=== PATIENT | female | born 1975 ===

== ENCOUNTER 2024-12-17 08:30 | Outpatient (AMB) | payer OTHER, SELFPAY ==
--- NOTE | 2024-12-17 08:33 | A.OFFPC_ITS ---
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: No Is last menstrual period known: Yes Last menstrual period: 11/28/24 Post menopausal: No Patient : No Allergies No Known Allergies Allergy (Verified 12/17/24 08:51) Medication List - Last Reconciled 12/17/24 by Ken Ridley CNP No Known Home Meds Tobacco use date assessed: 12/17/24 Dental Screening Dental Screen Date: 12/17/24 Did you have a dental visit in the last 12 months?: No Did you have a dental problem in the last 6 months where you did not have access to dental care?: No Was dental information given to patient?: Yes HPI HPI Comments History of Present Illness Details 49-year-old female presents to establish care. Prior PCP? - [facility] Last office visit/CPE/labs - 2-3 years ago Acute issue(s) - Reports right sprain ankle. Slipped of f on the running board of her [employer] tundra, twisted, fell, and landed on her right ankle, on 12/11/2024. She is able to bear weight with ortho boot. She was given crutches for ambulation. She currently has ortho boot on. She reports pain if she bears weight with the boot off. She alternates between tylenol and ibuprofen as needed. She was evaluated at [facility] on 12/11/2024. - History of anxiety and depression. She notes that her depression is generally well controlled. She is anxious and worry all the times and does not know the cause. Reports history of fluoxetine and lorazepam. She has not been on medications for the past 4 years because she did not have health insurance. She denies history of out-patient therapist or psychiatrist. Past Medical History - Eczema, TMJ, hidradenitis, anxiety, de pression Surgical History - Gastric sleeve (4-5 years ago), C-sect ion, adenoidectomy, tonsillectomy, tubal ligation, cholecystectomy, appendectomy, bilateral breast reduction surgery Family History - Mom: Diabetes - MGM: Cardiovascular disease, diabetes , hypertension, hyperlipidemia Social History - Nonsmoker. Does not vape. Drinks wine on occasions. Denies recreational drug use - Has been making healthy dietary choice s; gradual increase in weight since gastric sleeve surgery. Walk regularly. Difficulty maintaining sleep; sleeps an average of 5 hours nightly, initial sleep study in 2019 revealed sleep apnea, repeat sleep study 1-2 years later was normal Health maintenance - Last eye exam was in 2019. Referred to Ophthalmology for routine eye exam - Last dental visit was 3 years ago; enc ouraged to schedule an appointment with his dentist for routine dental care - Last tetanus vaccine was more than 10 years ago; received Tdap vaccine today - Has not been vaccinated for the flu ; declines vaccination - Last pap smear test was in 10/09/2024: n egative (reviewed on pt's portal on her phone) - Last mammogram was with [facility] in 11/19/2024: negative (reviewed on pt's portal on her phone) [facility] Medical History (Updated 12/17/24 @ 14:38 by Ken Ridley CNP) Hydradenitis TMJ (dislocation of temporomandibular joint) Foot injury Eczema Depression Anxiety Surgical History (Updated 12/17/24 @ 09:00 by Becca Kahn MA) H/O gastric sleeve H/O: History of adenoidectomy History of tonsillectomy H/O tubal ligation History of cholecystectomy Hx of appendectomy History of bilateral breast reduction surgery Family History (Updated 12/17/24 @ 09:02 by Becca Kahn MA) Maternal Grandmother High blood pressure High cholesterol Diabetes Cardiovascular disease Mother Diabetes Maternal Aunt Lung cancer Social History (Updated 12/17/24 @ 08:40 by Becca Kahn MA) Housing: House Patient Tobacco Use Status: Never used Tobacco e-Cigarette/Vaping Use: Never Used Second Hand Smoke Exposure: No service: No Current occupational status: unemployed Current occupational exposures/hazards: No Cognitive needs: No Hearing needs: No Vision needs: No Female Reproductive History Menstrual Date of last menstrual period: 11/28/24 Questionnaire PHQ-9 Over the last 2 weeks, how often have you been bothered by any of the following problems? 1. Little interest or pleasure in doing things: not at all 2. Feeling down, depressed, or hopeless: not at all 3. Trouble falling or staying asleep, or sleeping too much: not at all 4. Feeling tired or having little energy: not at all 5. Poor appetite or overeating: not at all 6. Feeling bad about yourself - or that you are a failure or have let yourself or your family down: not at all 7. Trouble concentrating on things, such as reading the newspaper or watching television: not at all 8. Moving or speaking so slowly that other people could have noticed. Or the opposite - being so fidgety or restless that you have been moving around a lot more than usual: not at all 9. Thoughts that you would be better off or of hurting yourself in some way: not at all Total score: 0 Depression Screening Interpretation: Negative Depression Screening Done: Yes 70996 - PHQ-9 Billing: Yes Source: Developed by Drs. Stef Garduno, Ivett Domingo, Johnny Healy and colleagues, with an educational teresita from [employer] Thrive Questionnaire Date Thrive assessed: 12/17/24 I am a: Patient What is your living situation today?: I choose not to answer this question Within the past 12 months, did the food you bought not last and you didn't have the money to get more?: I choose not to answer this question Within the past 12 months, did you worry whether your food would run out before you got money to buy more?: I choose not to answer this question Do you have trouble paying for medicines?: I choose not to answer this question Do you have trouble getting transportation to medical appointments?: I choose not to answer this question Do you have trouble paying your heating and electricity bill?: I choose not to answer this question Do you have trouble taking care of your child, family member or friend?: I choose not to answer this question Do you have trouble with day-to-day activities such as bathing, preparing meals, shopping, managing finances, etc.?: I choose not to answer this question Are you currently unemployed and looking for a job?: I choose not to answer this question Are you interested in more education?: I choose not to answer this question Please select the resources that you would like help with: None Currently or been in a relationship where the following occur: I choose not to answer THRIVE Score: 0 AUDIT C Alcohol Use Questionnaire (AUDIT-C) 1. How often do you have a drink containing alcohol?: Never 3. How often do you have six or more drinks on one occasion?: Never Total Score: 0 Score Reviewed/Action Taken: Yes JG-7 AMB Questionnaire JG-7 Date JG - 7 assessed: 12/17/24 Feeling nervous, anxious, or on edge: 2 = More than half the days Not being able to stop or control worryin = More than half the days Worrying too much about different things: 2 = More than half the days Trouble relaxin = More than half the days Being so restless that it is hard to sit still: 2 = More than half the days Becoming easily annoyed or irritable: 2 = More than half the days Feeling afraid as if something awful might happen: 0 = Not at all Total JG-7 score (0-4 normal; 5-9 mild; 10-14 moderate; 15-21 severe): 12 Source: Developed by Drs. Stef Garduno, Ivett Domingo, Johnny Healy and colleagues, with an educational teresita from [employer] JG-7 Assessment Billing JG-7 Assessment Tool: JG-7 Assessment 50992 Review of Systems Const Details: Denies chills, Denies fatigue, Denies fever(s), Denies headache(s) and Denies weakness HEENT Denies change in vision, Denies dizziness, Denies headache(s), Denies hearing loss, Denies nasal congestion, Denies sinus pain, Denies sinus pressure and Denies sore throat Card Denies chest pain, Denies lightheadedness, Denies dyspnea and Denies other (palpitations) Resp Denies cough, Denies dyspnea and Denies wheezing GI Denies abdominal pain, Denies melena, Denies hematochezia, Denies change in bowel habits, Denies dyspepsia and Denies nausea Denies hematuria and Denies dysuria Musc Reports right ankle sprain, Reports abnormal gait, Denies numbness and Denies tingling Skin/Breast Denies rash, Denies unusual bruising and Denies wounds Neuro Denies dizziness, Denies headache(s), Denies memory loss, Denies numbness, Denies Sensory deficit (Neuro), Denies tingling and Denies weakness Psych Reports anxiety, Denies depression and Denies memory loss Endo Denies cold intolerance, Denies fatigue, Denies heat intolerance, Denies polydipsia and Denies polyuria Mir/Lymph Denies easy bleeding and Denies easy bruising Aller/Immun Denies wheezing Physical exam (Primary Care) Vital Signs: Last Vital Signs Temp 98.2 F 12/17/24 08:40 Pulse 83 12/17/24 08:40 Resp 16 12/17/24 08:40 BP 132/81 12/17/24 08:40 Pulse Ox 100 12/17/24 08:40 Oxygen Delivery Method Room Air 12/17/24 08:40 BMI result Body Mass Index 39.8 Tobacco/Smoking Status: Tobacco use Status Tobacco use date assessed 12/17/24 12/17/24 08:40 Patient Tobacco Use Status Never used Tobacco 12/17/24 08:40 e-Cigarette/Vaping Use Never Used 12/17/24 08:40 PHQ-9: PHQ-9 Score PHQ-9: Total score 0 12/17/24 09:54 Depression Screening Interpretation: Negative Thrive Assessment: Date of Thrive Assessment Date Thrive assessed 12/17/24 12/17/24 08:40 Currently or been in a relationship where the following occur: I choose not to answer Const Other: General: no acute distress, well developed, alert and awake Nutritional Appearance: well nourished Orientation/consciousness: patient oriented x3 HENMT Head: Yes normocephalic and Yes atraumatic Ears: hearing grossly normal bilaterally and TM's normal bilaterally General nose exam: Normal external nose present and Normal nares present Mouth: Normal oral and palatal mucosa present and moist mucous membranes Teeth and gingiva: dentition normal Throat: Yes oropharynx normal Eyes Pupils: Equal, round and reactive pupils present and Pupil accommodation reflex normal EOM: EOMs intact bilaterally Neck Neck: Yes normal visual inspection, Yes no lymphadenopathy and Yes trachea midline Thyroid: Thyroid normal Carotids: no bruits Lymphatic: no lymphadenopathy noted Chest Chest palpation & inspection: normal inspection of the chest Resp Effort & Inspection: normal respiratory effort Auscultation: clear to auscultation bilaterally Cardio Rate: regular rate Rhythm: regular rhythm Heart sounds: S1 normal heart sound present, S2 normal heart sound present, no gallops, no murmurs and no rubs Bruits: no abdominal aortic bruits and no carotid bruits GI Palpation (GI): No Abdominal aortic bruit present, Soft to palpation, nontender, No hepatosplenomegaly present and No Rebound tenderness present Auscultation: normal bowel sounds General: Yes no CVA tenderness Back/Spine/Pelvis Back: no CVA tenderness Cervical Spine: cervical ROM normal and No Cervical spine tenderness Thoracic/Lumbar Spine: thoraco-lumbar ROM normal, No pain with thoraco-lumbar ROM, No thoracic spinal tenderness and No lumbar spinal tenderness Skin General: warm and dry. Normal skin color. Normal skin turgor Lesions: no lesions Rashes: no rashes Trauma: no lacerations or abrasions Wounds: no wounds Nails: normal Neuro General: patient oriented x3, gait unsteady and CN's II-XI intact bilaterally Cranial nerves: Yes Equal, round and reactive pupils present Cognition (Neuro): normal cognition Gait exam (Neuro): Unsteady gait present favoring right lower extremity Motor exam (neuro): 5/5 motor strength present throughout Sensory Exam: No Sensory deficit (Neuro) Deep tendon reflexes (DTR's): Right patellar reflex intensity grade: 2+ and Left patellar reflex intensity grade: 2+ Extrem General: Yes normal to inspection, No calf tenderness, tenderness to palpation of the right ankle, moderate edema noted, normal CMS Psych Appearance: grossly normal Affect: normal affect Attitude: cooperative Thought process: Normal thought process present Immunizations Boostrix Tdap 2.5 Lf unit-8 mcg-5 Lf/0.5 mL intramuscular syringe Performing Provider: Ken Ridley CNP Performing Location: [facility] Administered by: Nereida White RN on 12/17/24 09:52 Dose Route Admin Location Dispensed Lot Number Expiration Date NDC Level Vial Setter 0.5 mL IM Right Deltoid 0.5 mL [id number] 03/01/27 11552-970-41 [employer] VIS Given Date VIS Provided VIS Publication Date 12/17/24 Single Vaccine 21 Eligibility Eligibility Date Funding Source Not [facility] Eligible 12/17/24 Private Coding Level of Care Code New Pt Level 4 (72017) Complex EM visit Add On G2211 Diagnoses Right ankle sprain S93.401A Anxiety F41.9 Depression F32.A Eye exam, routine Z01.00 Obesity (BMI 30-39.9) E66.9 Sleep disturbance G47.9 Laboratory tests ordered as part of a complete physical exam (CPE) Z00.00 Additional Codes JG-7 Assessment Billing - JG-7 Assessment Tool: JG-7 Assessment 32821 ([id number]) PHQ-9 - 36652 - PHQ-9 Billing: Yes ([id number]) Assessment & Plan Assessment & Plan (1) Right ankle sprain: Code(s): S93.401A - Sprain of unspecified ligament of right ankle, initial encounter Category: Medical Plan: Reports right sprain ankle. Slipped off on the running board of her [employer] tundra, twisted, fell, and landed on her right ankle, on 12/11/2024. She is able to bear weight with ortho boot. She was given crutches for ambulation. She currently has ortho boot on. She reports pain if she bears weight with the boot off. She alternates between tylenol and ibuprofen as needed. She was evaluated at [facility] on 12/11/2024. Tenderness to palpation of the right ankle, moderate edema noted, normal CMS. Unsteady gait favoring the right lower extremity. Continue current treatment regimen. Elevate right lower extremity to improve edema. Follow-up for an extended physical exams and lab review in 1 month. Return sooner with symptoms or concerns. Verbalized understanding and agreed with treatment plan. (2) Anxiety: Code(s): F41.9 - Anxiety disorder, unspecified Category: Medical Plan: History of anxiety and depression. She notes that her depression is generally well controlled. She is anxious and worry all the times and does not know the cause. Reports history of fluoxetine and lorazepam. She has not been on medications for the past 4 years because she did not have health insurance. She denies history of out-patient therapist or psychiatrist. JG-7 score revealed moderate anxiety. PHQ-9 score is normal. Declines psychotropic medications or psychotherapy referral at this time. Routine exercise encouraged. Follow-up as needed. Verbalized understanding and agreed with the plan. (3) Depression: Code(s): F32.A - Depression, unspecified Category: Medical Plan: Plan as above. (4) Eye exam, routine: Code(s): Z01.00 - Encounter for examination of eyes and vision without abnormal findings Category: Medical Plan: Last eye exam was in 2020. Referred to Ophthalmology for routine eye exam. (5) Obesity (BMI 30-39.9): Code(s): E66.9 - Obesity, unspecified Category: Medical Plan: She generally makes healthy lifestyle choices. Her weight has gradually increased since she had gastric sleeve surgery 4-5 years ago. 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 Healthy diet and routine exercise encouraged. Follow-up as needed. Verbalized understanding and agreed with the plan. (6) Sleep disturbance: Code(s): G47.9 - Sleep disorder, unspecified Category: Medical Plan: Repports difficulty maintaining sleep. She sleeps an average of 5 hours nightly. Initial sleep study in 2019 revealed sleep apnea, repeat sleep study 1-2 years later was normal. She is not on CPAP. Instructed on sleep hygiene. Referred to [facility] for sleep study. Follow-up with worsening or new symptoms. Verbalized understanding and agreed with the plan. (7) Laboratory tests ordered as part of a complete physical exam (CPE): Code(s): Z00.00 - Encounter for general adult medical examination without abnormal findings Plan: Fasting labs ordered as part of a complete physical exam. Advised to fast for at least 10 hours before getting labs drawn. May drink water Verbalized understanding and agreed with treatment plan. Orders: Orders Complete Blood Count Auto Diff Today Z00.00 - Encounter for general adult medical examination without abnormal findings Comprehensive [place]. Panel Fast Today Z00.00 - Encounter for general adult medical examination without abnormal findings Lipid Panel Today Z00.00 - Encounter for general adult medical examination without abnormal findings TSH reflex Free T4 Today Z00.00 - Encounter for general adult medical examination without abnormal findings UA CC w/rflx Micro + Cult Today Z00.00 - Encounter for general adult medical examination without abnormal findings TDaP Immunization Today Z23 - Encounter for immunization Microalbumin, Random (w Creat) Today Z00.00 - Encounter for general adult medical examination without abnormal findings Vitamin D 25-OH Total Today Z00.00 - Encounter for general adult medical examination without abnormal findings Referrals Sleep Medicine Referral G47.9 - Sleep disorder, unspecified Ophthalmology Referral Z01.00 - Encounter for examination of eyes and vision without abnormal findings
[2024-12-17 08:40] VITALS: BP 132/81; PULSE 83; RESP 16; TEMP 36.8; O2SAT 100; BMI 39.8
--- OUTSIDE RECORDS SUMMARY | 2024-12-17 08:56 | XMS_ITS | Encounter Summary ---
Author Organization [facility] Address [address] [place] [address] Care Team Providers Care Mill Tender Second Operator Name Role Phone Stef Garcia DO Primary Care Provider + Reason for Referral * Consultation (Routine) - Authorized Specialty Diagnoses / Procedures Referred By Shiva brock Referred To Contact Orthopaedic Surgery Diagnoses ankle sprain Lila Corbett PA [address] [place] [address] Phone: tel: fax: Orthopedic Surgery [facility] [address] [address] Phone: tel: fax: Referral ID Status Reason Start Date Expiration Date Visits Requested Visits Authorized [id number] Authorized Specialty Services Required 12/11/2024 12/11/2025 1 1 Reason for Visit * Reason Comments Ankle Pain Pt fell from truck a nd landed on right ankle, here with c/o right ankle pain. Denies hitting her head. Encounter Details Date Type Department Care Team (Late st Contact Info) Description 12/11/2024 6:15 PM EDT - 12/11/2024 8:[address] [facility] Emergency [address] [place] [address] Sprain of right ankle, unspecified ligament, initial encounter (Primary Dx); Closed avulsion fracture of metatarsal bone of right foot, initial encounter Discharge Disposition: Home or Self Care Social History Tobacco Use Types Packs/Day Years Used Date Smoking Tobacco: Never Smokeless Tobacco: Never Alcohol Use Standard Drinks/Week Comments No 0 (1 standard drink = 0.6 oz pur e alcohol) Comments No Sex and Gender Information Value Date Recorded Sex Assigned at Not on file Legal Sex Female 11:45 PM EST Gender Identity Not on file Sexual Orientation Not on file documented as of this encounter Last Filed Vital Signs Vital Sign Reading Time Taken Comments Blood Pressure 134/92 12/11/2024 8:37 PM EDT Pulse 72 12/11/2024 8:37 PM EDT Temperature 37.1 ??C (98.8 ??F) 12/11/2024 8:37 PM ED T Respiratory Rate 16 12/11/2024 8:37 PM EDT Oxygen Saturation 100% 12/11/2024 8:37 PM EDT Inhaled Oxygen Concentration - - Weight 97.5 kg (215 lb) 12/11/2024 5:39 PM EDT Height 160 cm (5' 3 ) 12/11/2024 5:39 PM EDT Body Mass Index 38.09 12/11/2024 5:39 PM EDT documented in this encounter Discharge Instructions * Discharge Instructions* NATALY Valdivia - 12/11/2024 8:16 PM EDT You are seen in the ER today for right ankle and foot pain after an injury. We did do an x-ray which does show a likely small bone chip on the right side of your foot near your ankle. I likely believe you may have also sprained your ankle , meaning you stretched or injured the ligaments or tendons in your ankle. This caused some swelling and discomfort. I highly recommend elevating the foot, applying ice for 20 minutes 3-4 times a day, keeping it wrapped with an Sebastien wrap, and you may use crutches as needed. Weight-bear as tolerated. Try to practice gentle stretches and exercises such as thealphabet exercises we discussed. I also recommend taking Tylenol and ibuprofen for pain and swelling. Please return to the ER immediately if you experience any changes of color, temperature, sensation,new weakness, sudden increase in pain, or any other concerning findings. It was a pleasure caring for you today in the emergency department. Please return to the emergency department if you begin to experience any new onset chest pain, shortness of breath, uncontrolled fevers, severe abdominal pain, loss of consciousness, uncontrolled vomiting, uncontrolled diarrhea, or for any other reason you feel is necessary. Please follow-up with your PCP about this visit. Examination and treatment you received in the emergency department has been rendered on an EMERGENCY basis only. It is not intended to be a substitute for or an effort to provide complete medical care. You should follow-up with your primary care provider. Please report to your physician any new or remaining problems, because it is impossible to recognize and treat all elements of injury or illness in a single emergency department visit. If you do not have a primary care provider or require a referral, a follow-up doctor section gang for the emergency department will be provided in your discharge packet. In the event that you're unable to obtain a followup appointment in a timely fashion, OR you are not getting any better, OR you are getting worse, OR you develop any symptoms of concern, please return here immediately for further evaluation. The emergency department is open 24 hours a day, 7 days aweek. Your discharge report is based on information that was available when you were in the emergency department If you do not have a primary care provider, please contact one of the following to make arrangements to follow up. [facility] Marlee Ramírez Marlee Conchita * Attachments The following attachments cannot be sent through Care Everywhere. * Metatarsal Fracture (Finnish) * Ankle Sprain (Finnish) documented in this encounter Medications at Time of Discharge azelaic acid (FINACEA) 15 % gel Apply small amount to affected areas BID 07/30/2020 calcium carbonate-cholec alciferol 500 mg-10 mcg (400 unit) per chewable tablet Take by mouth. 04/22/2020 chlorhexidine (PERIDEX) 0.12 % solution 12/21/2019 cholecalciferol (VITAMIN D-3) 125 mcg (5,000 unit) capsule Take 1 Cap by mouth daily. 08/13/2019 EPINEPHrine (EpiPen 2-Logan) 0.3 mg/0.3 mL injection Inject 0.3 mg into the muscle as needed for Other (anaphylactic reaction). Fill with whichever brand is covered by insurance. 04/17/2020 FLUoxetine (PROzac) 10 mg capsule Take 1 capsule by mouth daily. To be taken with 20mg cap for total 30mg daily 10/15/2020 FLUoxetine (PROzac) 20 mg capsule Take 1 capsule (20 mg total) by mouth 1 (one) time each day. 10/15/2020 hydrOXYzine HCL (ATARAX) 10 mg tablet Take 1-2 Tablets by mouth 3 times daily as needed for Anxiety. May increase to 2 tabs if needed 10/15/2020 ketoconazole (NIZORAL) 2 % shampoo Lather on skin and let sit for 5 minutes, then wash off. Use daily 12/25/2019 multivitamin (MULTIPLE VITAMINS ORAL) Take by mouth. 04/22/2020 potassium chloride 20 mEq tablet extended release 11/07/2020 simethicone (MYLICON,GAS-X) 180 mg capsule Take 1 capsule by mouth 3 times daily (with meals). 11/11/2020 spironolactone (ALDACTONE) 50 mg tablet Take 1 tablet (50 mg total) by mouth 2 (two) times a day. 10/13/2020 documented as of this encounter Discharge Disposition Disposition Code Departure Means Destination Comment s Home or Self Care documented in this encounter Progress Notes * Ely Cantu RN - 12/11/2024 5:37 PM EDT Right ankle injury after foot slipped off running board of truck * NATALY Valdivia - 12/11/2024 5:35 PM EDT Emergency Medicine Note Patient Name: Ivonne Bello Initial Evaluation: 12/11/2024 : 1975 Patient's PCP: Stef Garcia DO Emergency Physician: NATALY Valdivia History of Present Illness Chief Complaint: Chief Complaint Patient presents with Ankle Pain Pt fell from truck and landed on right ankle, here with c/o right ankle pain. Denies hitting her head. HPI: 49-year-old female patient presents the ER today reporting right ankle pain after injury. Patient was getting out of a truck when she tried to step on the side step but missed it and fell to theground, landing on her right ankle. She reports it is very painful and swollen. Denies change to color or temperature sensation of the foot. Denies hitting her head or any other injuries during the fall. Not anticoagulated. No head neck or back pain. ROS: I have performed a ROS with the pertinent positives and negatives documented in the history ofpresent illness. Previous History Past Medical History: Diagnosis Date Anxiety 06/13/2013 DX:Anxiety Eczema DX:Eczema; COMMENT: childhood, and likely foot right Hidradenitis suppurativa surgery 2010 DX:Hidradenitis suppurativa; COMMENT: axillary resolved with surgery, minor in groin Obesity DX:Obesity SADIE (obstructive sleep apnea) DX:SADIE (obstructive sleep apnea) Past Surgical History: Procedure Laterality Date APPENDECTOMY 2003 PROCEDURE: HISTORICAL APPENDECTOMY APPENDECTOMY 2003 PROCEDURE: KS APPENDECTOMY BREAST BIOPSY Right 2018 PROCEDURE: KS BX BREAST W/DEVICE 1ST LESION ULTRASOUND GUID; COMMENT: right b9 BREAST REDUCTION Bilateral 2001 PROCEDURE: KS BREAST REDUCTION BREAST SURGERY Right 06/12/2014 PROCEDURE: KS UNLISTED PROCEDURE BREAST; COMMENT: fibroadenoma BREAST SURGERY Right 2019 PROCEDURE: KS UNLISTED PROCEDURE BREAST; COMMENT: right mass removed SECTION PROCEDURE: KS DELIVERY ONLY OTHER SURGICAL HISTORY 09/11/2019 PROCEDURE: ---- OTHER ----; COMMENT: excision right breast mass OTHER SURGICAL HISTORY 12/21/2019 PROCEDURE: ---- OTHER ----; COMMENT: Right TMJ arthroscopy, lysis, laveage, therapeutic injection, TMJ reduction, partial bony extraction tooth 1 and sug extract tooth 16 OTHER SURGICAL HISTORY 05/19/2018 PROCEDURE: ---- OTHER ----; COMMENT: Mony TONSILLECTOMY age 14 PROCEDURE: HISTORICAL TONSILLECTOMY TUBAL LIGATION 2004 PROCEDURE: HISTORICAL TUBAL LIGATION Social History Tobacco Use Smoking status: Never Smokeless tobacco: Never Substance Use Topics Alcohol use: No Drug use: No Family History Problem Relation Name Age of Onset Other (Other: heart disease) Father alive at 63 in 2013 Eczema Daughter Other (Other: allrgic rhinitis) Daughter Other (Other: childhood asthma) Son Diabetes Maternal Grandmother Hypertension Maternal Grandmother Breast cancer Maternal Grandmother Other (Other: kidney failure) Maternal Grandmother Other (Other: blood clot) Paternal Grandmother also cancer, ? type; in her late 60s Ovarian cancer Aunt 42 maternal Lung cancer Aunt remote smoker Prostate cancer Uncle 40 paternal uncle Prostate cancer Uncle 40 paternal uncle Other (Other: Other) Uncle paternal uncle ? cause of Breast cancer Other Gr GM 47 maternal gr aunt Breast cancer Other 68 maternal great grandmother-second primary Prostate cancer Other two maternal gr uncles > 50 Prostate cancer Other paternal gr uncle Lung cancer Other paternal gr uncle Other (Other: brain tumor) Other paternal gr uncle Colon cancer Neg Hx Uterine cancer Neg Hx is allergic to food allergy formula, other, passion fruit flavor, and shellfish containing products. No current facility-administered medications on file prior to encounter. Current Outpatient Medications on File Prior to Encounter Medication Sig Dispense Refill azelaic acid (FINACEA) 15 % gel Apply small amount to affected areas BID (Patient not taking: Reported on 10/09/2024) calcium carbonate-cholecalciferol 500 mg-10 mcg (400 unit) per chewable tablet Take by mouth. (Patient not taking: Reported on 10/09/2024) chlorhexidine (PERIDEX) 0.12 % solution (Patient not taking: Reported on 10/09/2024) cholecalciferol (VITAMIN D-3) 125 mcg (5,000 unit) capsule Take 1 Cap by mouth daily. (Patient not taking: Reported on 10/09/2024) EPINEPHrine (EpiPen 2-Logan) 0.3 mg/0.3 mL injection Inject 0.3 mg into the muscle as needed for Other (anaphylactic reaction). Fill with whichever brand is covered by insurance. (Patient not taking: Reported on 10/09/2024) FLUoxetine (PROzac) 10 mg capsule Take 1 capsule by mouth daily. To be taken with 20mg cap for total 30mg daily (Patient not taking: Reported on 10/09/2024) FLUoxetine (PROzac) 20 mg capsule Take 1 capsule (20 mg total) by mouth 1 (one) time each day. (Patient not taking: Reported on 10/09/2024) hydrOXYzine HCL (ATARAX) 10 mg tablet Take 1-2 Tablets by mouth 3 times daily as needed for Anxiety. May increase to 2 tabs if needed (Patient not taking: Reported on 10/09/2024) ketoconazole (NIZORAL) 2 % shampoo Lather on skin and let sit for 5 minutes, then wash off. Use daily (Patient not taking: Reported on 10/09/2024) multivitamin (MULTIPLE VITAMINS ORAL) Take by mouth. (Patient not taking: Reported on 10/09/2024) potassium chloride 20 mEq tablet extended release (Patient not taking: Reported on 10/09/2024) simethicone (MYLICON,GAS-X) 180 mg capsule Take 1 capsule by mouth 3 times daily (with meals). (Patient not taking: Reported on 10/09/2024) spironolactone (ALDACTONE) 50 mg tablet Take 1 tablet (50 mg total) by mouth 2 (two) times a day. (Patient not taking: Reported on 10/09/2024) Physical Exam Physical Exam Constitutional: General: She is not in acute distress. Appearance: Normal appearance. She is not ill-appearing, toxic-appearing or diaphoretic. HENT: Head: Normocephalic and atraumatic. Eyes: Extraocular Movements: Extraocular movements intact. Pupils: Pupils are equal, round, and reactive to light. Pulmonary: Effort: Pulmonary effort is normal. Musculoskeletal: Comments: Right ankle tender to palpation over the lateral malleolus and lateral aspect of the footwith some minor swelling noted. Dorsalis pedis and posterior tibial pulses present and equal. Cap refill normal. Decreased range of motion of the ankle secondary to pain. No pain at the knee or hip. Skin: General: Skin is warm. Neurological: General: No focal deficit present. Mental Status: She is alert and oriented to person, place, and time. Mental status is at baseline. Psychiatric: Mood and Affect: Mood normal. Behavior: Behavior normal. Thought Content: Thought content normal. Judgment: Judgment normal. ED Triage Vitals [12/11/24 1739] Temp Heart Rate Resp BP 37.1 ??C (98.8 ??F) 102 18 (!) 156/105 SpO2 Temp Source Heart Rate Source Patient Position 100 % Oral -- -- BP Location FiO2 (%) -- -- Results Labs Reviewed - No data to display Abnormal Labs Reviewed - No data to display XR Foot 3+ Views Right ED Interpretation Question a small avulsion fracture of the right fifth proximal metatarsal XR Ankle 3+ Views Right (Results Pending) I have discussed the incidental/abnormal imaging and/or lab abnormalities with the patient and haveinstructed them the need for further evaluation and workup with their primary care doctor. I have provided the patient with a paper copy of the abnormality. The laboratory results, imaging results and other diagnostic exam results were reviewed in the EMR. EKG Interpretation Critical Care Time None ? Medical Decision Making Medications acetaminophen (TYLENOL) tablet 1,000 mg (1,000 mg oral Given 12/11/241941) ketorolac (TORADOL) injection 15 mg (15 mg intramuscular Given 12/11/241943) Medical Decision Making Differential diagnosis include but not limited to: fracture dislocation sprain Tendon injury Ligament injury Nerve injury Vascular compromise Contusion Joint effusion in short 49-year-old female patient presenting to the ER today for right ankle injury. On arrival vitals are stable patient afebrile. Patient sitting comfortably in bed nontoxic and in no acute distress, hemodynamically stable. Does have right ankle tenderness and swelling. On x-ray question a avulsion fracture of the proximal fifth metatarsal. Neuro vasascularly intact. Will give boot and crutches will outpatient follow-up with Ortho. Strict return precautions and discharged home. Agrees with plan. Clinical Impressions as of 12/11/242016 Sprain of right ankle, unspecified ligament, initial encounter Closed avulsion fracture of metatarsal bone of right foot, initial encounter Procedures Procedures Diagnosis 1. Sprain of right ankle, unspecified ligament, initial encounter 2. Closed avulsion fracture of metatarsal bone of right foot, initial encounter Disposition Discharge ED Prescriptions None Physician Attestation NATALY Valdivia 12/11/242016 NATALY Valdivia 12/11/242037 Cosigned by Lissette Diaz DO at 12/11/2024 11:34 PM EDT Associated attestation - Lissette Diaz DO - 12/11/2024 11:34 PM EDT I discussed the patient with the RADHA and performed a substantive portion of the visit including allaspects of the medical decision making. Review x-ray imaging with PA documented in this encounter Plan of Treatment Scheduled Referrals Name Type Priority Associated Diagnoses Order Schedule Ambulatory referral to Orthopedic Outpatient Referral Routine 1 Occurrence s starting 12/11/2024 until 12/11/2025 documented as of this encounter Procedures Procedure Name Priority Date/Time Associated Diagnosis Comments XR FOOT 3+ VIEWS RIGHT STAT 12/11/2024 5:56 PM EDT XR ANKLE 3+ VIEWS RIGHT STAT 12/11/2024 5:56 PM EDT documented in this encounter Results * XR Foot 3+ Views Right (12/11/2024 5:56 PM EDT) Anatomical Region Laterality Modality Lower Extremities, Foot Right [facility] 12/11/2024 9:09 PM EDT Impressions 12/11/2024 9:10 PM EDT FINDINGS/IMPRESSION: Mild soft tissue swelling at the dorsum. ??Degenerative changes of the foot without evidence for an acute fracture. ??Normal alignment. ??Trace calcaneal spur. -------- FINAL REPORT -------- Dictated By: Rebel Herrera Dictated Date: 12/11/2024 21:09 ET Assigned Physician: Rebel Herrera Reviewed and Electronically Signed By: Rebel Herrera Signed Date: 12/11/2024 21:10 ET Workstation ID: [id number] Transcribed By: Self Edit Transcribed Date: 12/11/2024 21:10 ET Narrative 12/11/2024 9:10 PM EDT XR FOOT 3+ VIEWS RIGHT INDICATION: Pain, unspecified trauma TECHNIQUE: XR FOOT 3+ VIEWS RIGHT COMPARISON: No priors available. Procedure Note Rebel Herrera MD - 12/11/2024 XR FOOT 3+ VIEWS RIGHT INDICATION: Pain, unspecified trauma TECHNIQUE: XR FOOT 3+ VIEWS RIGHT COMPARISON: No priors available. IMPRESSION: FINDINGS/IMPRESSION: Mild soft tissue swelling at the dorsum.Degenerative changes of the foot without evidence for an acute fracture.Normal alignment. Trace calcaneal spur. -------- FINAL REPORT -------- Dictated By: Rebel Herrera Dictated Date: 12/11/2024 21:09 ET Assigned Physician: Rebel Herrera Reviewed and Electronically Signed By: Rebel Herrera Signed Date: 12/11/2024 21:10 ET Workstation ID: [id number] Transcribed By: Self Edit Transcribed Date: 12/11/2024 21:10 ET us Lissette Diaz DO IMG XR PROCEDURES Final R esult * XR Ankle 3+ Views Right (12/11/2024 5:56 PM EDT) Anatomical Region Laterality Modality Lower Extremities, Ankle Right Radiogr [facility] 12/11/2024 8:51 PM EDT Impressions 12/11/2024 8:52 PM EDT FINDINGS/IMPRESSION: Three views of the ankle demonstrating degenerative changes and evidence of prior injury. ??There is soft tissue swelling. ??There is no acute fracture. ??Smooth talar dome. ??Normal alignment. -------- FINAL REPORT -------- Dictated By: Rebel Herrera Dictated Date: 12/11/2024 20:51 ET Assigned Physician: Rebel Herrera Reviewed and Electronically Signed By: Rebel Herrera Signed Date: 12/11/2024 20:52 ET Workstation ID: [id number] Transcribed By: Self Edit Transcribed Date: 12/11/2024 20:51 ET Narrative 12/11/2024 8:52 PM EDT XR ANKLE 3+ VIEWS RIGHT INDICATION: Pain, unspecified TECHNIQUE: XR ANKLE 3+ VIEWS RIGHT COMPARISON: No priors available. Procedure Note Rebel Herrera MD - 12/11/2024 XR ANKLE 3+ VIEWS RIGHT INDICATION: Pain, unspecified TECHNIQUE: XR ANKLE 3+ VIEWS RIGHT COMPARISON: No priors available. IMPRESSION: FINDINGS/IMPRESSION: Three views of the ankle demonstrating degenerativechanges and evidence of prior injury. There is soft tissue swelling.There is no acute fracture. Smooth talar dome. Normal alignment. -------- FINAL REPORT -------- Dictated By: Rebel Herrera Dictated Date: 12/11/2024 20:51 ET Assigned Physician: Rebel Herrera Reviewed and Electronically Signed By: Rebel Herrera Signed Date: 12/11/2024 20:52 ET Workstation ID: [id number] Transcribed By: Self Edit Transcribed Date: 12/11/2024 20:51 ET Lissette Diaz DO IMG XR PROCEDURES Final R esult documented in this encounter Visit Diagnoses Diagnosis Sprain of right ankle, unspecified ligament, initial encounter- Primary Closed avulsion fracture of metatarsal bone of right foot, initial encounter documented in this encounter Administered Medications Inactive Administered Medications - up to 3 most recent administrations Medication Order MAR Action Action Date Dose Rate Site acetaminophen (TYLENOL) tablet 1,000 mg 1,000 mg, oral, Once, On Tue12/11/24 at 193, For 1 dose Given 12/11/2024 7:42 PM EDT 1,000 mg ketorolac (TORADOL) injection 15 mg 15 mg, intramuscular, Once, On Tue12/11/24 at 1937, For 1 dose Given 12/11/2024 7:44 PM EDT 15 mg Right Deltoid documented in this encounter Active and Recently Administered Medications Times are shown in EDT. Scheduled Medication Order 12/09/2024 12/10/2024 12/11/2024 acetaminophen (TYLENOL) tablet 1,000 mg (COMPLETED) 1,000 mg, oral, Once, On Tue12/11/24 at 1937, For 1 dose 1941 (Given - Provid er: Bianca Regalado RN) ketorolac (TORADOL) injection 15 mg (COMPLETED) 15 mg, intramuscular, Once, On Tue12/11/24 at 1937, For 1 dose 1943 (Given - Provid er: Bianca Regalado RN) documented in this encounter Care Teams Mill Tender Second Operator Relationship Specialty Start Date End Date Stef Garcia DO [facility] [address] [place] [id number] PCP - General Internal Medicine 10/14/20 documented as of this encounter
== END 2024-12-17 09:54 | disposition home or self-care (01) ==
LOC: HO.HMCFM 08:31
PROVIDERS: PCP Nurse Practitioner Family; Visit Provider Nurse Practitioner Family
DX: S93.401A Sprain of unspecified ligament of right ankle, initial encounter (principal); F41.9 Anxiety disorder, unspecified; F32.A Depression, unspecified; Z01.00 Encounter for examination of eyes and vision without abnormal findings; E66.9 Obesity, unspecified; G47.9 Sleep disorder, unspecified; Z00.00 Encounter for general adult medical examination without abnormal findings; Z23 Encounter for immunization

== ENCOUNTER → 2024-12-17 08:30 | Outpatient (BNVA) | payer OTHER, SELFPAY | PROVIDERS: PCP Nurse Practitioner Family; Visit Provider Nurse Practitioner Family | DX: Z00.00 Encounter for general adult medical examination without abnormal findings (principal); S93.401A Sprain of unspecified ligament of right ankle, initial encounter; F41.9 Anxiety disorder, unspecified; F32.A Depression, unspecified; E66.9 Obesity, unspecified; G47.9 Sleep disorder, unspecified; W01.0XXA Fall on same level from slipping, tripping and stumbling without subsequent striking against object, initial encounter; Y93.9 Activity, unspecified; Y92.9 Unspecified place or not applicable; Y99.9 Unspecified external cause status; Z23 Encounter for immunization | CPT/HCPCS: 90471; 90715; 96127; 99202 ==

== ENCOUNTER 2025-02-07 09:32 | Outpatient (REF) | payer OTHER, SELFPAY ==
--- OUTSIDE RECORDS SUMMARY | 2025-02-07 10:00 | XMS_ITS | Clinical Summary ---
Author Organization [facility] [address] [place] [address] [place] [phone] Phone Care Team Providers Care Social Sciences Professor Name Role Phone Stef Garcia DO Primary Care Provider + Allergies Active Allergy Reactions Criticality Noted Date Comments Food Allergy Formula 10/09/2024 Other Reaction(s): PASSION fruit- hives Other 12/25/2019 Other Reaction(s): SEASONAL environmental allergies Passion Fruit Flavor 12/25/2019 swelling Shellfish Containing Products Itching,Swelling 04/17/2020 Hives, throat itching/clearing, angiodema after eating a dish with mussels, lobster, clams and shrimp Medications azelaic acid (FINACEA) 15 % gel Apply small amount to affected areas BID 1 Active calcium carbonate-kayli calciferol 500 mg-10 mcg (400 unit) per chewable tablet Take by mouth. 0 Active chlorhexidine (PERIDEX) 0.12 % solution 0 Active cholecalciferol (VITAMIN D-3) 125 mcg (5,000 unit) capsule Take 1 Cap by mouth daily. 0 Active EPINEPHrine (EpiPen 2-Logan) 0.3 mg/0.3 mL injection Inject 0.3 mg into the muscle as needed for Other (anaphylactic reaction). Fill with whichever brand is covered by insurance. 0 Active FLUoxetine (PROzac) 10 mg capsule Take 1 capsule by mouth daily. To be taken with 20mg cap for total 30mg daily 1 Active FLUoxetine (PROzac) 20 mg capsule Take 1 capsule (20 mg total) by mouth 1 (one) time each day. 1 Active hydrOXYzine HCL (ATARAX) 10 mg tablet Take 1-2 Tablets by mouth 3 times daily as needed for Anxiety. May increase to 2 tabs if needed 1 Active ketoconazole (NIZORAL) 2 % shampoo Lather on skin and let sit for 5 minutes, then wash off. Use daily 0 Active potassium chloride 20 mEq tablet extended release 1 Active simethicone (MYLICON,GAS-X) 180 mg capsule Take 1 capsule by mouth 3 times daily (with meals). 1 Active spironolactone (ALDACTONE) 50 mg tablet Take 1 tablet (50 mg total) by mouth 2 (two) times a day. 1 Active multivitamin (MULTIPLE VITAMINS ORAL) Take by mouth. 0 Active amoxicillin-cla vulanate (AUGMENTIN) 875-125 mg per tablet Take 1 tablet by mouth every 12 (twelve) hours for 7 days. 14 tablet 5 02/09/20 25 Active HYDROcodone-ricki taminophen (NORCO) 5-325 mg per tablet Take 1 tablet by mouth every 6 (six) hours if needed for severe pain for up to 3 days. Max Daily Amount: 4 tablets 12 tablet 5 02/05/20 25 Active Problems Problem Noted Date Diagnosed Date Severe obesity (BMI 35.0-39. 9) with comorbidity ([facility] V24, [facility] V28) 06/14/2024 Overview (06/14/2024): s/p sleeve gastrectomy in May 2018 SADIE (obstructive sleep apnea) 06/14/2024 Hidradenitis suppurativa 06/14/2024 Overview (06/14/2024): axillary resolved with surgery, minor in groin Eczema 06/14/2024 Overview (06/14/2024): childhood, and likely foot right Diabetes mellitus type 2, co ntrolled ([facility] V24, [facility] V28) 2020 Seasonal allergic rhinitis due to pollen 021 Allergic conjunctivitis, bilateral 07/29/2020 COVID-19 virus infection 04/21/2020 Intestinal malabsorption following gastrectomy 0 09/27/2018 Anxiety 06/13/2013 Vitamin D insufficiency 03/22/2013 Insomnia 02/28/2012 Depression 02/28/2012 Encounters Date Type Department Care Team Description 02/01/2025 12:30 PM EDT - 02/01/2025 7:01 PM EDT Emergency [facility] Emergency [address] [place] [phone] Darrell Jackson MD Inflammatory bowel disease (Primary Dx) Discharge Disposition: Home or Self Care 12/11/2024 6:15 PM EDT - 12/11/2024 8:39 PM EDT Emergency [facility] Emergency [address] [place] [phone] Sprain of right ankle, unspecified ligament, initial encounter (Primary Dx); Closed avulsion fracture of metatarsal bone of right foot, initial encounter Discharge Disposition: Home or Self Care 11/19/2024 2:18 PM EDT - 11/19/2024 11:59 PM EDT Hospital Encounter Radiology Department - [address] [phone] Breast lump Discharge Disposition: Home or Self Care 11/19/2024 2:18 PM EDT - 11/19/2024 11:59 PM EDT Hospital Encounter Radiology Department - [address] [phone] Mass of right breast, unspecified quadrant Discharge Disposition: Home or Self Care from Last 3 Months Immunizations Name Administration Dates Next Due DTP 04/09/1997, 3,04/05/1980,1979,08/29/1978,06/30/1978,02/25/1978 HPV, Quadrivalent 09/06/2019,08/01/2019 Hepatitis A-Hepatitis B Adul t (Twinrix) 18yo and older 01/15/2011,06/15/2010,05/08/2010 Influenza trivalent, with preservative (Fluzone; Afluria) 6mo and older 03/22/2013,04/03/2010,05/15/2007 MMR, measles mumps and rubel la Live (Priorix; M-M-R II) 12mo and older 05/16/1989,01/16/1979 Moderna SARS-CoV-2 COVID-19, mRNA, LNP-S, preservative free 10/02/2020,09/04/2020 OPV 03/16/1983, 0,09/29/1979,1978,06/30/1978,02/25/1978 PPD Test 03/07/2012 Td Tetanus diptheria (Tdvax) 7yo and older 09/06/2019 Tdap Tetanus diptheria acell ular pertussis (Boostrix; Adacel) 7yo and older 07/02/2008 Varicella live (Varivax) 12m o and older 01/29/2011 Surgical History Surgery Date Site/Laterality Comments APPENDECTOMY 2003 PROCEDURE: HISTORICAL APPENDECTOMY SECTION PROCEDURE: MA DELIVERY ONLY TONSILLECTOMY age 14 PROCEDURE: HISTORICAL TONSILLECTOMY APPENDECTOMY 2003 PROCEDURE: MA APPENDECTOMY TUBAL LIGATION 2004 PROCEDURE: HISTORICAL TUBAL LIGATION OTHER SURGICAL HISTORY 09/11/2019 PROCEDURE: ---- OTHER ----; COMMENT: excision right breast mass OTHER SURGICAL HISTORY 12/21/2019 PROCEDURE: ---- OTHER ----; COMMENT: Right TMJ arthroscopy, lysis, laveage, therapeutic injection, TMJ reduction, partial bony extraction tooth 1 and sug extract tooth 16 OTHER SURGICAL HISTORY 05/19/2018 PROCEDURE: ---- OTHER ----; COMMENT: Mony BREAST BIOPSY 2018 Right PROCEDURE: MA BX BREAST W/DEVICE 1ST LESION ULTRASOUND GUID; COMMENT: right b9 BREAST REDUCTION 2001 Bilateral PROCEDURE: MA BREAST REDUCTION BREAST SURGERY 06/12/2014 Right PROCEDURE: MA UNLISTED PROCEDURE BREAST; COMMENT: fibroadenoma BREAST SURGERY 2019 Right PROCEDURE: MA UNLISTED PROCEDURE BREAST; COMMENT: right mass removed Medical History Medical History Date Comments Obesity DX:Obesity Hidradenitis suppurativa surgery 2010 DX:Hidr adenitis suppurativa; COMMENT: axillary resolved with surgery, minor in groin Eczema DX:Eczema; COMME NT: childhood, and likely foot right Anxiety 06/13/2013 DX:Anxiety SADIE (obstructive sleep apnea) DX :SADIE (obstructive sleep apnea) Family History Medical History Relation Name Comments Ovarian cancer Aunt 1 maternal Lung cancer Aunt 2 remote smoker Eczema Daughter Other: allrgic rhinitis Daughter Other: heart disease Father alive a t 63 in 2013 Breast cancer Maternal Grandmother Diabetes Maternal Grandmother Hypertension Maternal Grandmother Other: kidney failure Maternal Grandmother Breast cancer Other 1 Gr GM maternal gr au nt Breast cancer Other 2 maternal great grandmother-second primary Prostate cancer Other 3 two maternal gr uncles > 50 Prostate cancer Other 4 paternal gr uncle Lung cancer Other 5 paternal gr unc le Other: brain tumor Other 6 paternal gr uncle Other: blood clot Paternal Grandmother al so cancer, ? type; in her late 60s Other: childhood asthma Son 1 Prostate cancer Uncle 1 paternal unc le Prostate cancer Uncle 2 paternal unc le Other: Other Uncle 3 paternal uncle ? cause of Colon cancer Neg Hx Uterine cancer Neg Hx Relation Name Status Comments Aunt 1 Aunt 2 Brother Alive x2 Daughter Alive x2 Father Alive Maternal Grandfather Alive Maternal Grandmother Mother Alive Other 1 Gr GM Alive Other 2 Other 3 Other 4 Other 5 Other 6 Paternal Grandfather Paternal Grandmother Sister Alive x1 Son 1 Son 2 Alive x1 Uncle 1 Uncle 2 Uncle 3 Social History Tobacco Use Types Packs/Day Years Used Date Smoking Tobacco: Never Smokeless Tobacco: Never Tobacco Cessation:Counseling Given: Not Answered Alcohol Use Standard Drinks/Week Comments No 0 (1 standard drink = 0.6 oz pur e alcohol) Comments No Sex and Gender Information Value Date Recorded Sex Assigned at Not on file Legal Sex Female 11:45 PM EST Gender Identity Not on file Sexual Orientation Not on file Obstetrics History Para Term AB IAB SAB Ectopic Multiple Livin g Live Births 5 4 3 1 1 1 3 3 Date Outcome GA Total Labor Labor/2nd/3rd Weight Sex Type Anes PTL Wendy A1 A5 Name Clin Term 995 SAB SAB Decea sed 998 32w 0d 2155 g (76 oz) F CS-Un spec Livin g Marsis ol Delivery Location:[facility] 000 Term 40w 0d 3402 g (120 oz) M Vag-S pont Livin g Schuyler Delivery Location:[facility] 005 Term 40w 0d 4026 g (142 oz) F Vag-S pont Livin g Lissy Delivery Location:[facility] Last Filed Vital Signs Vital Sign Reading Time Taken Comments Blood Pressure 124/83 02/01/2025 5:08 PM EDT Pulse 81 02/01/2025 5:08 PM EDT Temperature 37 C (98.6 F) 02/01/2025 5:08 PM EDT Respiratory Rate 18 02/01/2025 5:08 PM EDT Oxygen Saturation 100% 02/01/2025 5:08 PM EDT Inhaled Oxygen Concentration - - Weight 97.5 kg (215 lb) 02/01/2025 12:29 PM EDT Height 160 cm (5' 3 ) 02/01/2025 12:29 PM EDT Body Mass Index 38.09 02/01/2025 12:29 PM EDT Plan of Treatment Health Maintenance Due Date Last Done Comments Diabetes: Annual Foot Exam 10/15/1987 Diabetes: Annual Retina Eye Exam 10/15/1987 Pneumococcal Vaccine: Pediatrics (0 to 5 Years) and At-Risk Patients (6 to 49 Years) (1 of 2 - PCV) 1996 HPV Vaccines (3 - Risk 3-dose SCDM series) 01/30/2020 09/06/2019, 08/01/2019 Colorectal Cancer Screening: Colonoscopy 06/12/2022 Diabetes: Annual Urine Albumin-Creatinine Ratio (uACR) 06/12/2022 Diabetes: Blood Sugar Control Test (HGBA1C) 06/12/2022 01/03/2018 Social Influencers of Health Screening 06/12/2022 Cholesterol Screening (Lipid Panel) 01/03/2023 01/03/2018 COVID-19 Vaccine ( season) 2024 06/20/2021, 10/02/2020, 09/04/2020 Depression Screening 07/04/2024 Influenza Vaccine (#1) 2025 , 03/22/2013, 04/03/2010, Additional history exists Diabetes: Annual GFR (Glomerular Filtration Rate) 02/01/2026 02/01/2025, 07/07/2024, 09/06/2019 Breast Cancer Screening 11/19/2026 11/20/19 25, 08/03/2021, 07/29/2020, Additional history exists Cervical Cancer Screening: HPV 10/09/2029 10/09/2024, 08/01/2019 DTaP,Tdap,and Td Vaccines (11 - Td or Tdap) 12/17/2034 12/17/2024, 09/06/2019, 11/24/2016, Additional history exists IPV Vaccines Completed 03/16/1983, 09/1979, 09/29/1979, Additional history exists MMR Vaccines Completed 05/16/1989, 01/16/1979 Hepatitis A Vaccines Aged Out 01/15/2011, 06/15/2010, 05/08/2010 No longer eligible based on patient's age to complete this topic Hepatitis B Vaccines Completed 01/15/2011, 06/15/2010, 05/08/2010 Varicella Vaccines Aged Out 01/29/2011 No longer eligible based on patient's age to complete this topic HIV Screening Completed 10/09/2024, 09/06/2019 Hepatitis C Screening Completed 10/09/2024, 020 HIB Vaccines Aged Out No longer eligi ble based on patient's age to complete this topic Meningococcal ACWY Vaccine Aged Out N o longer eligible based on patient's age to complete this topic Meningococcal B Vaccine Aged Out No l onger eligible based on patient's age to complete this topic RSV Immunization Patients Under 20 months Aged Out No longer eligible based on patient's age to complete this topic Procedures Procedure Name Priority Date/Time Associated Diagnosis Comments CT ABDOMEN PELVIS W CONTRAST STAT 02/01/2025 4:35 PM EDT POC , URINE DIAGNOSTIC STAT 02/01/2025 4:05 PM EDT CBC WITH AUTO DIFFERENTIAL STAT 02/01/2025 12:44 PM EDT LIPASE STAT 02/01/2025 12:44 PM EDT COMPREHENSIVE METABOLIC PANEL STAT 02/01/2025 12:44 PM EDT CBC AND DIFFERENTIAL STAT 02/01/2025 12:44 PM EDT XR FOOT 3+ VIEWS RIGHT STAT 5 5:56 PM EDT XR ANKLE 3+ VIEWS RIGHT STAT 12/12/19 5:56 PM EDT US BREAST LIMITED RIGHT Routine 11/20/19 3:13 PM EDT Breast lump MG MAMMO DIGITAL DIAGNOSTIC W SUNDAR BILAT Routine 11/19/2024 2:53 PM EDT Mass of right breast, unspecified quadrant HEPATITIS C ANTIBODY Routine 10/09/2024 4:48 PM EDT Screen for STD (sexually transmitted disease) HIV 1, 2 ANTIBODY, P24 ANTIGEN WITH REFLEX TO DIFFERENTIATION Routine 10/09/2024 4:48 PM EDT Screen for STD (sexually transmitted disease) HPV WITH REFLEX GENOTYPE Routine 10/09/2024 4:19 PM EDT Encounter for gynecological examination without abnormal finding HEMOGLOBIN A1C Routine 01/03/2018 LIPID PANEL Routine 01/03/2018 from Last 3 Months or Most Recently Relevant to Health Maintenance Results * CT Abdomen Pelvis w Contrast (02/01/2025 4:35 PM EDT) Anatomical Region Laterality Modality Body Computed Tomogra phy 02/01/2025 4:52 PM EDT Impressions 02/01/2025 4:56 PM EDT Infectious/inflammatory enteritis of the terminal ileum, consider inflammatory bowel disease in the proper clinical setting. -------- FINAL REPORT -------- Dictated By: Rebel Herrera Dictated Date: 02/01/2025 16:52 ET Assigned Physician: Rebel Herrera Reviewed and Electronically Signed By: Rebel Herrera Signed Date: 02/01/2025 16:56 ET Workstation ID: [id number] Transcribed By: Self Edit Transcribed Date: 02/01/2025 16:52 ET Narrative 02/01/2025 4:56 PM EDT PROCEDURE: CT ABDOMEN/PELVIS WITH CONTRAST INDICATION: Epigastric pain TECHNIQUE: CT of the abdomen and pelvis following the intravenous administration of 90cc Isovue 370. Multiplanar reformats. The examination was performed utilizing dose reduction techniques. Total DLP 1159 COMPARISON: No priors available. FINDINGS: LOWER THORAX: Lung bases are clear. HEPATOBILIARY: No focal liver lesions. Cholecystectomy clips SPLEEN: No focal lesion. PANCREAS: No focal mass or ductal dilatation. ADRENALS: No nodules. KIDNEYS/URETERS: No hydronephrosis, stones, or solid mass. PELVIC ORGANS/BLADDER: Unremarkable. PERITONEUM / RETROPERITONEUM: There are mesenteric lymph nodes are presumably reactive. VESSELS: No aneurysm. GI TRACT: Small hiatal hernia. Sleeve gastrectomy. There is significant wall thickening and inflammatory change involving the terminal ileum suggestive of an infectious/inflammatory enteritis. BONES AND SOFT TISSUES: Disc bulge L4-5 with mild spinal stenosis at this level. Soft tissues are unremarkable. Procedure Note Rebel Herrera MD - 02/01/2025 PROCEDURE: CT ABDOMEN/PELVIS WITH CONTRAST INDICATION: Epigastric pain TECHNIQUE: CT of the abdomen and pelvis following the intravenousadministration of 90cc Isovue 370. Multiplanar reformats. The examinationwas performed utilizing dose reduction techniques. Total DLP 1159 COMPARISON: No priors available. FINDINGS: LOWER THORAX: Lung bases are clear. HEPATOBILIARY: No focal liver lesions. Cholecystectomy clips SPLEEN: No focal lesion. PANCREAS: No focal mass or ductal dilatation. ADRENALS: No nodules. KIDNEYS/URETERS: No hydronephrosis, stones, or solid mass. PELVIC ORGANS/BLADDER: Unremarkable. PERITONEUM / RETROPERITONEUM: There are mesenteric lymph nodes arepresumably reactive. VESSELS: No aneurysm. GI TRACT: Small hiatal hernia. Sleeve gastrectomy. There is significantwall thickening and inflammatory change involving the terminal ileumsuggestive of an infectious/inflammatory enteritis. BONES AND SOFT TISSUES: Disc bulge L4-5 with mild spinal stenosis at thislevel. Soft tissues are unremarkable. IMPRESSION: Infectious/inflammatory enteritis of the terminal ileum, considerinflammatory bowel disease in the proper clinical setting. -------- FINAL REPORT -------- Dictated By: Rebel Herrera Dictated Date: 02/01/2025 16:52 ET Assigned Physician: Rebel Herrera Reviewed and Electronically Signed By: Rebel Herrera Signed Date: 02/01/2025 16:56 ET Workstation ID: [id number] Transcribed By: Self Edit Transcribed Date: 02/01/2025 16:52 ET Darrell Jackson MD IMG CT PROCEDURES Final Result * POC , urine manually resulted (02/01/2025 4:05 PM EDT) HCG, Ur POC Negative Negative POC hCG Int QC Pass? Yes Yes Urine Urine specimen obtained by clean catch procedure / Unknown 02/01/2025 4:05 PM EDT Darrell Jackson MD POINT OF CARE TEST ENTER/EDIT OR DERABLES Edited Result - Final * (ABNORMAL) CBC auto differential (02/01/2025 12:44 PM EDT) [facility] WBC 9.2 4.8 - 10.8 K/mcL LAB HEMETOLOGY METHOD 02/01/2025 1:30 PM EDT [facility] RBC 4.80 3.80 - 4.80 M/mcL LAB HEMETOLOGY METHOD 02/01/2025 1:30 PM EDT [facility] Hemoglobin 13.0 11.5 - 16.0 g/dL LAB HEMETOLOGY METHOD 02/01/2025 1:30 PM EDT [facility] Hematocrit 40.9 35.0 - 47.0 % LAB HEMETOLOGY METHOD 02/01/2025 1:30 PM EDT [facility] MCV 86.1 79.0 - 98.0 FL LAB HEMETOLOGY METHOD 02/01/2025 1:30 PM EDT [facility] MCH 27.4 27.0 - 32.0 pcg LAB HEMETOLOGY METHOD 02/01/2025 1:30 PM EDT [facility] MCHC 31.8(L) 32.0 - 37.0 g/dL LAB HEMETOLOGY METHOD 02/01/2025 1:30 PM EDT [facility] RDW 13.8 11.0 - 15.0 % LAB HEMETOLOGY METHOD 02/01/2025 1:30 PM EDT [facility] Platelets 418(H) 130 - 400 K/mcL LAB HEMETOLOGY METHOD 02/01/2025 1:30 PM EDT [facility] MPV 9.4 7.0 - 11.0 FL LAB HEMETOLOGY METHOD 02/01/2025 1:30 PM EDT [facility] NRBC 0.0 <1.0 % LAB HEMETOLOGY METHOD 02/01/2025 1:30 PM EDT [facility] NRBC Absolute 0.00 <0.10 K/mcL LAB HEMETOLOGY [facility]ils Relative 74.8 % LAB HEMETOLOGY METHOD 02/01/2025 1:30 PM EDT [facility] Lymphocytes Relative 16.1 % LAB HEMETOLOGY METHOD 02/01/2025 1:30 PM EDT [facility] Monocytes Relative 8.3 % LAB HEMETOLOGY METHOD [facility] Eosinophils Relative 0.3 % LAB HEMETOLOGY METHOD 02/01[facility]2025 [facility] Basophils Relative 0.2 % LAB HEMETOLOGY METHOD 02/01/2025 1:30 PM EDT [facility] Immature Granulocytes Relative 0.3 % LAB HEMETOLOGY METHOD 02/01/2025 1:30 PM EDT [facility] Neutrophils Absolute 6.85 1.50 - 7.00 K/mcL LAB HEMETOLOGY METHOD 02/[facility]25 [facility] Lymphocytes Absolute 1.48 1.00 - 5.00 K/mcL LAB HEMETOLOGY METHOD 02/01[facility]2025 [facility] Monocytes Absolute 0.76 0.20 - 1.00 K/mcL LAB HEMETOLOGY METHOD 02/01/2025 1:30 PM EDT [facility] Eosinophils Absolute 0.03 0.00 - 0.50 K/mcL LAB HEMETOLOGY METHOD 02/01/2025 1:30 PM EDT [facility] Basophils Absolute 0.02 0.00 - 0.20 K/mcL LAB HEMETOLOGY METHOD 02/01/2025 1:30 PM EDT [facility] Immature Granulocytes Absolute 0.03 0.00 - 0.03 K/mcL LAB HEMETOLOGY METHOD 02/01/2025 1:30 PM EDT [facility] Blood Venous blood specimen / Unknown Venipuncture / Unknown 02/01/2025 12:44 PM EDT 02/01/2025 1:19 PM EDT us Darrell Jackson MD LAB BLOOD ORDERABLES Final Resul t Performing Organization Address City/[facility]/ZIP Co de Phone Number [facility] [address] [place] [address], [place] [phone] * Lipase (02/01/2025 12:44 PM EDT) Pathologist [facility] Lipase 35 13 - 75 unit/L LAB CHEMISTRY METHOD 02/01/2025 1:59 PM EDT [facility] Blood Venous blood specimen / Unknown Venipuncture / Unknown 02/01/2025 12:44 PM EDT 02/01/2025 1:19 PM EDT us Darrell Jackson MD LAB BLOOD ORDERABLES Final Resul t Performing Organization Address City/[facility]/ZIP Co de Phone Number [facility] [address] [place] [address], [place] [phone] * Comprehensive metabolic panel (02/01/2025 12:44 PM EDT) Sodium 137 133 - 145 mmol/L LAB CHEMISTRY METHOD 02/01/2025 1:59 PM [facility] Potassium 4.1 3.5 - 5.5 mmol/L LAB CHEMISTRY METHOD 02/01/2025 1:59 PM [facility] Comment:Hemolysis present Chloride 104 96 - 110 mmol/L LAB CHEMISTRY METHOD 02/01/2025 1:59 PM [facility] CO2 28 21 - 32 mmol/L LAB CHEMISTRY METHOD 02/01/2025 1:59 PM [facility] Anion Gap 5 3 - 11 LAB CHEMISTRY METHOD 02/01/2025 1:59 PM [facility] Glucose 93 70 - 100 mg/dL LAB CHEMISTRY METHOD 02/01/2025 1:59 PM [facility] BUN 11 5 - 25 mg/dL LAB CHEMISTRY METHOD 02/01/2025 1:59 PM [facility] Creatinine 0.75 0.50 - 1.10 mg/dL LAB CHEMISTRY METHOD 02/01/2025 1:59 PM [facility] eGFR 99 >=60 mL/min/1. 73m2 LAB CHEMISTRY METHOD 02/01/2025 1:59 PM [facility] Comment:Calculation based on the Chronic Kidney Disease Epidemiology Collaboration (CKD-EPI) equation refit without adjustment for race. BUN/Creatinine Ratio 14.7 LAB CHEMISTRY METHOD 02/01/2025 1:59 PM [facility] Calcium 9.6 8.5 - 10.5 mg/dL LAB CHEMISTRY METHOD 02/01/2025 1:59 PM [facility] AST (SGOT) 16 10 - 42 unit/L LAB CHEMISTRY METHOD 02/01/2025 1:59 PM [facility] Comment:Hemolysis present ALT (SGPT) 23 10 - 60 unit/L LAB CHEMISTRY METHOD 02/01/2025 1:59 PM [facility] Alkaline Phosphatase 66 42 - 121 unit/L LAB CHEMISTRY METHOD 02/01/2025 1:59 PM EDT [facility] Total Protein 7.2 6.0 - 8.0 g/dL LAB CHEMISTRY METHOD 02/01/2025 1:59 PM EDT [facility] Albumin 3.6 3.2 - 5.0 g/dL LAB CHEMISTRY METHOD 02/01/2025 1:59 PM EDT [facility] Total Bilirubin 0.2 0.0 - 1.4 mg/dL LAB CHEMISTRY METHOD 02/01/2025 1:59 PM EDT [facility] Blood Venous blood specimen / Unknown Venipuncture / Unknown 02/01/2025 12:44 PM EDT 02/01/2025 1:19 PM EDT Darrell Jackson MD LAB BLOOD ORDERABLES Final Resul t [facility] [address] [place] [address], [place] [phone] * XR Foot 3+ Views Right (12/11/2024 5:56 PM EDT) Anatomical Region Laterality Modality Lower Extremities, Foot Right Radiogra phic Imaging 12/11/2024 9:09 PM EDT Impressions 12/11/2024 9:10 PM EDT FINDINGS/IMPRESSION: Mild soft tissue swelling at the dorsum. Degenerative changes of the foot without evidence for an acute fracture. Normal alignment. Trace calcaneal spur. -------- FINAL REPORT -------- Dictated By: Rebel Herrera Dictated Date: 12/11/2024 21:09 ET Assigned Physician: Rebel Herrera Reviewed and Electronically Signed By: Rebel Herrera Signed Date: 12/11/2024 21:10 ET Workstation ID: [id number] Transcribed By: Self Edit Transcribed Date: 12/11/2024 [...] Signed Date: 12/11/2024 21:10 ET Workstation ID: [id number] Transcribed By: Self Edit Transcribed Date: 12/11/2024 21:10 ET us Fritz Gómez Diaz DO IMG XR PROCEDURES Final R esult * XR Ankle 3+ Views Right (12/11/2024 5:56 PM EDT) Anatomical Region Laterality Modality Lower Extremities, Ankle Right Radiogr aphic Imaging 12/11/2024 8:51 PM EDT Impressions 12/11/2024 8:52 PM EDT FINDINGS/IMPRESSION: Three views of the ankle demonstrating degenerative changes and evidence of prior injury. There is soft tissue swelling. There is no acute fracture. Smooth talar dome. Normal alignment. -------- FINAL REPORT -------- Dictated By: Rebel Herrera Dictated Date: 12/11/2024 20:51 ET Assigned Physician: Rebel Herrera Reviewed and Electronically Signed By: Rebel Herrera Signed Date: 12/11/2024 20:52 ET Workstation ID: [id number] Transcribed By: Self Edit Transcribed Date: 12/11/2024 [...] Signed Date: 12/11/2024 20:52 ET Workstation ID: [id number] Transcribed By: Self Edit Transcribed Date: 12/11/2024 20:51 ET us Ting Gómez Cirilo Diaz DO IMG XR PROCEDURES Final R esult * US Breast Limited Right (11/19/2024 3:13 PM EDT) Anatomical Region Laterality Modality Breast Right Ultrasound 11/19/2024 3:22 PM EDT Impressions 11/19/2024 3:50 PM EDT No imaging correlate for the intermittent palpable right breast lump. Further management of the palpable finding should be clinically based. No new mammographic evidence of malignancy in either breast. BREAST DENSITY: C - The breasts are heterogeneously dense which may obscure small masses. BI-RADS CATEGORY: 2 - BENIGN RECOMMENDATION: Clinical management of right breast is recommended. Screening bilateral mammogram is recommended in 1 year. MAMMO LOCATION: [facility], [address] [place] [address], [id number], . -------- FINAL REPORT -------- Dictated By: Lizz Carlton Dictated Date: 11/19/2024 15:22 ET Assigned Physician: Lizz Carlton Reviewed and Electronically Signed By: Lizz Carlton Signed Date: 11/19/2024 15:50 ET Workstation ID: [id number] Transcribed By: Self Edit Transcribed Date: 11/19/2024 15:22 ET Narrative 11/19/2024 3:50 PM EDT EXAM: MG MAMMO DIGITAL DIAGNOSTIC W SUNDAR BILAT, US BREAST LIMITED RIGHT HISTORY: Intermittent painful palpable right breast lump. Patient reports she cannot feel the lump today. History of benign right core biopsies x2 on 06/12/2014 (fibroadenomas). Status post excision of the fibroadenoma at the 12 o'clock position in 2019. History of bilateral reduction mammoplasty. COMPARISON: Mammography as recent as 08/03/2021 and as far back as 05/11/2014 TECHNIQUE: Bilateral mediolateral oblique and craniocaudal views were obtained digitally with 3-D mammogram (digital breast tomosynthesis). Computer-aided detection was utilized in evaluation of this exam (CAD). FINDINGS: Stable bilateral postsurgical changes. No new suspicious mass, suspicious architectural distortion, or suspicious calcifications. Patient delineated the area of the palpable right breast lump at the 9 o'clock position, 5 cm from the nipple. Sonography shows no solid or cystic lesion. Procedure Note Lizz Carlton MD - 11/19/2024 EXAM: MG MAMMO DIGITAL DIAGNOSTIC W SUNDAR BILAT, US BREAST LIMITED RIGHT HISTORY: Intermittent painful palpable right breast lump. Patient reportsshe cannot feel the lump today. History of benign right core biopsies x2on 06/12/2014 (fibroadenomas). Status post excision of the fibroadenomaat the 12 o'clock position in 2019. History of bilateral reductionmammoplasty. COMPARISON: Mammography as recent as 08/03/2021 and as far back as107/11/2013 TECHNIQUE: Bilateral mediolateral oblique and craniocaudal views wereobtained digitally with 3-D mammogram (digital breast tomosynthesis).Computer-aided detection was utilized in evaluation of this exam (CAD). FINDINGS: Stable bilateral postsurgical changes. No new suspicious mass, suspiciousarchitectural distortion, or suspicious calcifications. Patient delineated the area of the palpable right breast lump at the 9o'clock position, 5 cm from the nipple. Sonography shows no solid orcystic lesion. IMPRESSION: No imaging correlate for the intermittent palpable right breast lump.Further management of the palpable finding should be clinically based. No new mammographic evidence of malignancy in either breast. BREAST DENSITY: C - The breasts are heterogeneously dense which mayobscure small masses. BI-RADS CATEGORY: 2 - BENIGN RECOMMENDATION: Clinical management of right breast is recommended.Screening bilateral mammogram is recommended in 1 year. MAMMO LOCATION: [facility], [address] [place] [address], [id number], . -------- FINAL REPORT -------- Dictated By: Lizz Carlton Dictated Date: 11/19/2024 15:22 ET Assigned Physician: Lizz Carlton Reviewed and Electronically Signed By: Lizz Carlton Signed Date: 11/19/2024 15:50 ET Workstation ID: [id number] Transcribed By: Self Edit Transcribed Date: 11/19/2024 15:22 ET us Mohini Miramontes CNM IMG US PROCEDURES Final Result * MG Mammo Digital Diagnostic w Sundar bilat (11/19/2024 2:53 PM EDT) Anatomical Region Laterality Modality Breast Bilateral Mammography 11/19/2024 3:22 PM EDT Impressions 11/19/2024 3:50 PM EDT No imaging correlate for the intermittent palpable right breast lump. Further management of the palpable finding should be clinically based. No new mammographic evidence of malignancy in either breast. BREAST DENSITY: C - The breasts are heterogeneously dense which may obscure small masses. BI-RADS CATEGORY: 2 - BENIGN RECOMMENDATION: Clinical management of right breast is recommended. Screening bilateral mammogram is recommended in 1 year. MAMMO LOCATION: [facility], [address] [place] [address], [id number], . -------- FINAL REPORT -------- Dictated By: Lizz Carlton Dictated Date: 11/19/2024 15:22 ET Assigned Physician: Lizz Carlton Reviewed and Electronically Signed By: Lizz Carlton Signed Date: 11/19/2024 15:50 ET Workstation ID: [id number] Transcribed By: Self Edit Transcribed Date: 11/19/2024 15:22 ET Narrative 11/19/2024 3:50 PM EDT EXAM: MG MAMMO DIGITAL DIAGNOSTIC W SUNDAR BILAT, US BREAST LIMITED RIGHT HISTORY: Intermittent painful palpable right breast lump. Patient reports she cannot feel the lump today. History of benign right core biopsies x2 on 06/12/2014 (fibroadenomas). Status post excision of the fibroadenoma at the 12 o'clock position in 2019. History of bilateral reduction mammoplasty. COMPARISON: Mammography as recent as 08/03/2021 and as far back as 05/11/2014 TECHNIQUE: Bilateral mediolateral oblique and craniocaudal views were obtained digitally with 3-D mammogram (digital breast tomosynthesis). Computer-aided detection was utilized in evaluation of this exam (CAD). FINDINGS: Stable bilateral postsurgical changes. No new suspicious mass, suspicious architectural distortion, or suspicious calcifications. Patient delineated the area of the palpable right breast lump at the 9 o'clock position, 5 cm from the nipple. Sonography shows no solid or cystic lesion. Procedure Note Lizz Carlton MD - 11/19/2024 EXAM: MG MAMMO DIGITAL DIAGNOSTIC W SUNDAR BILAT, US BREAST LIMITED RIGHT HISTORY: Intermittent painful palpable right breast lump. Patient reportsshe cannot feel the lump today. History of benign right core biopsies x2on 06/12/2014 (fibroadenomas). Status post excision of the fibroadenomaat the 12 o'clock position in 2019. History of bilateral reductionmammoplasty. COMPARISON: Mammography as recent as 08/03/2021 and as far back as107/11/2013 TECHNIQUE: Bilateral mediolateral oblique and craniocaudal views wereobtained digitally with 3-D mammogram (digital breast tomosynthesis).Computer-aided detection was utilized in evaluation of this exam (CAD). FINDINGS: Stable bilateral postsurgical changes. No new suspicious mass, suspiciousarchitectural distortion, or suspicious calcifications. Patient delineated the area of the palpable right breast lump at the 9o'clock position, 5 cm from the nipple. Sonography shows no solid orcystic lesion. IMPRESSION: No imaging correlate for the intermittent palpable right breast lump.Further management of the palpable finding should be clinically based. No new mammographic evidence of malignancy in either breast. BREAST DENSITY: C - The breasts are heterogeneously dense which mayobscure small masses. BI-RADS CATEGORY: 2 - BENIGN RECOMMENDATION: Clinical management of right breast is recommended.Screening bilateral mammogram is recommended in 1 year. MAMMO LOCATION: [facility], [address] [place] [address], [id number], . -------- FINAL REPORT -------- Dictated By: Lizz Carlton Dictated Date: 11/19/2024 15:22 ET Assigned Physician: Lizz Carlton Reviewed and Electronically Signed By: Lizz Carlton Signed Date: 11/19/2024 15:50 ET Workstation ID: [id number] Transcribed By: Self Edit Transcribed Date: 11/19/2024 15:22 ET us Mohini Miramontes CNM IMG BI PROCEDURES Final Result * Hepatitis C antibody (10/09/2024 4:48 PM EDT) [facility] Hepatitis C Antibody Negative Negative LAB CHEMISTRY METHOD 10/09/2024 7:40 PM EDT [facility] Blood Venous blood specimen / Unknown Venipuncture / Unknown 10/09/2024 4:48 PM EDT 10/09/2024 4:48 PM EDT Mohini Miramontes CNM LAB BLOOD ORDERABLES Final Res ult [facility] [address] [place] [address], [place] [phone] * HIV 1,2 antibody, p24 antigen with reflex to differentiation (10/09/2024 4:48 PM EDT) [facility] HIV Combo AB/AG Negative Negative LAB CHEMISTRY METHOD 10/09/2024 7:41 PM EDT [facility] Blood Venous blood specimen / Unknown Venipuncture / Unknown 10/09/2024 4:48 PM EDT 10/09/2024 4:48 PM EDT Narrative [facility] - 10/09/2024 7:41 PM EDT This assay is a 4th generation assay allowing for earlier detection of HIV infection by detecting the presence of the HIV-1 p24 antigen as well as the traditional antibodies to HIV type 1 (including group O) and type 2. Use of a 4th generation assay is the current CDC recommendation for HIV screening. Mohini Miramontes CNM LAB BLOOD ORDERABLES Final Res ult Performing Organization Address City/[facility]/ZIP Co de Phone Number [facility] [address] [place] [address], * HPV with reflex genotype (10/09/2024 4:19 PM EDT) Pathologist [facility] HPV Negative Negative LAB MICROBIOLOGY METHOD 10/12/2024 6:28 AM EDT [facility] Brushing/Spatula Cervix uteri structure / Unknown 10/09/2024 4:19 PM EDT 10/11/2024 5:54 AM EDT Mohini Miramontes [facility] MOLECULAR DIAGNOSTICS ORDE RABLES Final Result Performing Organization Address [facility]/ZIP Co de Phone Number [facility] [address] [place] [address], [place] [phone] * (ABNORMAL) Hemoglobin A1c (01/03/2018) Pathologist [facility] Hemoglobin A1C 6.8(A) <=6.5 % Blood Venous blood specimen / Unknown Historical Provider LAB BLOOD ORDERABLES Yashira l Result * Lipid panel (01/03/2018) LDL/HDL Ratio 4 0 - 4 Triglycerides 106 0 - 150 mg/dL Cholesterol 162 0 - 200 mg/dL HDL 42 >=40 mg/dL LDL Cholesterol 99 0 - 100 mg/dL Blood Venous blood specimen / Unknown Historical Provider LAB BLOOD ORDERABLES Yashira l Result from Last 3 Months or Most Recently Relevant to Health Maintenance Insurance [facility] [employer] Care Teams Social Sciences Professor Relationship Specialty Start Date End Date Stef Garcia DO [facility] [address] [place] [address] [phone] PCP - General Internal Medicine 10/14/20
--- OUTSIDE RECORDS SUMMARY | 2025-02-07 10:00 | XMS_ITS ---
Author Name [facility] Organization Unknown Care Team Organization Name Specialty Phone Email Start Date End Da te [facility] Ronan Suero DO Primary Care 06/15/202302/01 [facility] NULL Primary Care 05/11/2022 02/20/2024
[2025-02-07 13:10] LABS: Appearance Urine Turbid; Glucose Urine UA Negative (Negative); PH 6.0 (5.0-9.0); Specific Gravity - Urine 1.015 (1.005-1.025); UMIC TRIGGER UACC YES
[2025-02-07 13:20] LABS: MANUAL DIFF FLAG NO
[2025-02-07 13:30] LABS: UACC Culture Trigger YES
[2025-02-07 13:33] LABS: Hematocrit 38.9 % (37.0-47.0); Hemoglobin 12.4 g/dl (12.0-16.0); Imm Gran Abs Auto 0.02 X10*3/uL (0.00-0.03); Imm Gran Pct Auto 0.3 % (0.0-0.4); Lymphocytes Absolute Auto 1.6 X10*3/uL (1.2-4.9); Mean Corpuscular HGB Conc 31.9 g/dl (31.0-35.0); Mean Corpuscular Hemoglobin 27.4 pg (27.0-33.0); Mean Corpuscular Volume 85.9 fL (80.0-98.0); NRBC Abs Auto 0.000 X10*3/uL (0.0-0.012); NRBC Pct Auto 0.0 /100WBC (0.0-0.2); Platelet Count 524 X10*3/uL (160-400); Red Blood Count 4.53 X10*6/uL (4.20-5.50); White Blood Count 6.9 X10*3/uL (4.8-10.8)
[2025-02-07 13:43] LABS: Microalbum/Creatinine Ratio Ur 2.7 ug/mg cr (<30)
[2025-02-07 14:12] LABS: Alanine Aminotransferase 20 U/L (0-31); Albumin Level 4.2 g/dL (3.5-5.0); Alkaline Phosphatase 55 U/L (39-117); Anion Gap 12 (12-20); Aspartate Amino Transferase 31 U/L (5-31); Blood Urea Nitrogen 8 mg/dL (9-16); Calcium 9.2 mg/dL (8.4-10.2); Carbon Dioxide 27 mmol/L (22-29); Chloride 107 mmol/L (96-108); Cholesterol 176 mg/dL (<200); Estimated Glomerular Filt Rate > 60; HDL Cholesterol 42 mg/dL (>40); Potassium 4.4 mmol/L (3.3-5.1); Sodium 142 mmol/L (135-145); Total Protein 7.2 g/dL (6.5-8.0); Triglycerides 125 mg/dL (<150)
== END 2025-02-07 09:33 | disposition home or self-care (01) ==
LOC: HO.HKASLDS 09:32
PROVIDERS: Visit Provider Nurse Practitioner Family
DX: Z00.00 Encounter for general adult medical examination without abnormal findings (principal)
CPT/HCPCS: 36415; 80053; 80061; 81001; 81003; 82043; 82306; 82570; 84443; 85025; 87086

== ENCOUNTER 2025-02-11 07:57 | Outpatient (AMB) | payer OTHER, SELFPAY ==
--- NOTE | 2025-02-11 07:59 | A.OFFPC_ITS ---
Vital Signs 02/11/25 08:07 02/11/25 08:23 Height 5 ft 3 in Weight 216 lb 2 oz BMI 38.3 BP 164/72 H 146/86 H Blood Pressure Location Lt brachial Rt brachial Position Sitting Sitting Pulse 84 Pulse Source Pulse Oximeter Temp 97.5 F Temp Source Temporal Artery Scan Pulse Oximetry (%) 100 Oxygen Delivery Method Room Air Intake Visit Reasons: 1 mos CPE, labs reivew Intake Note: Ivonne presents in the office today for her annual physical and to go over her most recent lab results. Patient has a recent ER Visit at [facility]. Diagnosed with IBD. Is last menstrual period known: Yes (02/07/2025) Allergies Seasonal Allergies Allergy (Verified 02/11/25 08:09) COngested shellfish derived (shellfish) Allergy (Verified 02/11/25 08:09) Shortness of Breath Sour sop Allergy (Uncoded 02/11/25 08:09) Swelling Medication List - Last Reconciled 02/11/25 by Ken Ridley CNP No Known Home Meds Tobacco use date assessed: 02/11/25 Dental Screening Dental Screen Date: 02/11/25 Did you have a dental visit in the last 12 months?: No Did you have a dental problem in the last 6 months where you did not have access to dental care?: No Was dental information given to patient?: Yes HPI HPI Comments History of Present Illness Details 49-year-old female presents for an exten ded physical exam. She notes that she was recently evaluated at [facility] ED for GI symptoms and was diagnosed with IBD. ED record not currently available. No acute symptoms. Acute issue(s) Anxiety and depression: She notes that she has been feeling very anxious since she woke up this morning because i have a lot of things going on. She denies depression. Denies SI/HI/AVH. Notes history of taking lorazepam few years ago. Saw a therapist once. No history of psychiatrist. Declines psychotropic medications or referral to psychotherapy. Past Medical History - Eczema, TMJ, hidradenitis, anxiety, de pression Social History - Nonsmoker. Vapes nicotine occasionally , have been vaping on/off x 6 months. Drinks 1 glass of wine every other week. Denies recreational drug use - Generally makes healthy dietary choice s?; gradual increase in weight since gastric sleeve surgery. Walk regularly. Difficulty maintaining sleep; sleeps an average of 5 hours nightly, initial sleep study in 2019 revealed sleep apnea, repeat sleep study 1-2 years later was normal Health maintenance - Last eye exam was in 2019. Referred to Ophthalmology in 12/17/2024 - Last dental visit was 3 years ago; enc ouraged to schedule an appointment with his dentist for routine dental care - Last Tdap was in 12/17/2024 - Has not been vaccinated for the flu ; declines vaccination - Last pap smear test was in 10/09/2024: n egative (reviewed on pt's portal on her phone) - Last mammogram was with [facility] in 11/19/2024: negative (reviewed on pt's portal on her phone) [facility] Medical History (Updated 02/11/25 @ 08:42 by Ken Ridley CNP) Inflammatory bowel diseases (IBD) Hydradenitis TMJ (dislocation of temporomandibular joint) Foot injury Eczema Depression Anxiety Surgical History (Updated 12/17/24 @ 09:00 by Becca Kahn MA) H/O gastric sleeve H/O: History of adenoidectomy History of tonsillectomy H/O tubal ligation History of cholecystectomy Hx of appendectomy History of bilateral breast reduction surgery Family History Maternal Grandmother High blood pressure High cholesterol Diabetes Cardiovascular disease Mother Diabetes Maternal Aunt Lung cancer Social History (Updated 02/11/25 @ 08:06 by Bella Fish MA) Housing: House Alcohol intake: current Comment: Social Patient Tobacco Use Status: Never used Tobacco e-Cigarette/Vaping Use: Never Used Second Hand Smoke Exposure: No service: No Current occupational status: unemployed Current occupational exposures/hazards: No Cognitive needs: No Hearing needs: No Vision needs: No Questionnaire PHQ-9 Over the last 2 weeks, how often have you been bothered by any of the following problems? 1. Little interest or pleasure in doing things: several days 2. Feeling down, depressed, or hopeless: not at all 3. Trouble falling or staying asleep, or sleeping too much: several days 4. Feeling tired or having little energy: not at all 5. Poor appetite or overeating: several days 6. Feeling bad about yourself - or that you are a failure or have let yourself or your family down: not at all 7. Trouble concentrating on things, such as reading the newspaper or watching television: several days 8. Moving or speaking so slowly that other people could have noticed. Or the opposite - being so fidgety or restless that you have been moving around a lot more than usual: several days 9. Thoughts that you would be better off or of hurting yourself in some way: not at all Total score: 5 Depression Screening Interpretation: Positive Depression Screening Follow-up: Existing condition Depression Screening Done: Yes 77598 - PHQ-9 Billing: Yes Source: Developed by Drs. Stef Garduno, Ivett Domingo, Johnny Healy and colleagues, with an educational teresita from [employer]. Thrive Questionnaire Date Thrive assessed: 02/11/25 I am a: Patient What is your living situation today?: I choose not to answer this question Within the past 12 months, did the food you bought not last and you didn't have the money to get more?: I choose not to answer this question Within the past 12 months, did you worry whether your food would run out before you got money to buy more?: I choose not to answer this question Do you have trouble paying for medicines?: I choose not to answer this question Do you have trouble getting transportation to medical appointments?: I choose no t to answer this question Do you have trouble paying your heating and electricity bill?: I choose not to answer this question Do you have trouble taking care of your child, family member or friend?: I choose not to answer this question Do you have trouble with day-to-day activities such as bathing, preparing meals, shopping, managing finances, etc.?: I choose not to answer this question Are you currently unemployed and looking for a job?: I choose not to answer this question Are you interested in more education?: I choose not to answer this question Please select the resources that you would like help with: None Currently or been in a relationship where the following occur: I choose not to answer THRIVE Score: 0 AUDIT C Alcohol Use Questionnaire (AUDIT-C) 1. How often do you have a drink containing alcohol?: Monthly or less 2. How many drinks containing alcohol do you have on a typical day when you are drinking?: 1 or 2 3. How often do you have six or more drinks on one occasion?: Never Total Score: 1 JG-7 AMB Questionnaire JG-7 Date JG - 7 assessed: 02/11/25 Feeling nervous, anxious, or on edge: 1 = Several days Not being able to stop or control worryin = Several days Worrying too much about different things: 2 = More than half the days Trouble relaxin = Several days Being so restless that it is hard to sit still: 1 = Several days Becoming easily annoyed or irritable: 2 = More than half the days Feeling afraid as if something awful might happen: 1 = Several days Total JG-7 score (0-4 normal; 5-9 mild; 10-14 moderate; 15-21 severe): 9 Source: Developed by Drs. Stef Garduno, Ivett Domingo, Johnny Healy and colleagues, with an educational teresita from [employer]. JG-7 Assessment Billing JG-7 Assessment Tool: JG-7 Assessment 23708 Review of Systems Const Details: Denies chills, Denies fatigue, Denies fever(s), Denies headache(s) and Denies weakness HEENT Denies change in vision, Denies dizziness, Denies headache(s), Denies hearing loss, Denies nasal congestion, Denies sinus pain, Denies sinus pressure and Denies sore throat Card Denies chest pain, Denies lightheadedness, Denies dyspnea and Denies other (palpitations) Resp Denies cough, Denies dyspnea and Denies wheezing GI Denies abdominal pain, Denies melena, Denies hematochezia, Denies change in bowel habits, Denies dyspepsia and Denies nausea Denies hematuria and Denies dysuria Musc Denies abnormal gait, Denies myalgias, Denies arthralgias, Denies numbness and Denies tingling Skin/Breast Denies rash, Denies unusual bruising and Denies wounds Neuro Denies abnormal gait, Denies dizziness, Denies headache(s), Denies memory loss, Denies numbness, Denies Sensory deficit (Neuro), Denies tingling and Denies weakness Psych Reports anxiety, Denies depression and Denies memory loss Endo Denies cold intolerance, Denies fatigue, Denies heat intolerance, Denies polydipsia and Denies polyuria Mir/Lymph Denies easy bleeding and Denies easy bruising Aller/Immun Denies wheezing Physical exam (Primary Care) BMI result Body Mass Index 38.3 Tobacco/Smoking Status: Tobacco use Status Tobacco use date assessed 12/17/24 02/11/25 08:02 Patient Tobacco Use Status Never used Tobacco 02/11/25 08:06 e-Cigarette/Vaping Use Never Used 02/11/25 08:06 Depression Screening Interpretation: Positive Depression Screening Follow-up: Existing condition Thrive Assessment: Date of Thrive Assessment Date Thrive assessed 12/17/24 02/11/25 08:02 Currently or been in a relationship where the following occur: I choose not to answer Const Other: General: no acute distress, well developed, alert and awake Nutritional Appearance: well nourished Orientation/consciousness: patient oriented x3 HENMT Head: Yes normocephalic and Yes atraumatic Ears: hearing grossly normal bilaterally and TM's normal bilaterally General nose exam: Normal external nose present and Normal nares present Mouth: Normal oral and palatal mucosa present and moist mucous membranes Teeth and gingiva: dentition normal Throat: Yes oropharynx normal Eyes Pupils: Equal, round and reactive pupils present and Pupil accommodation reflex normal EOM: EOMs intact bilaterally Neck Neck: Yes normal visual inspection, Yes no lymphadenopathy and Yes trachea midline Thyroid: Thyroid normal Carotids: no bruits Lymphatic: no lymphadenopathy noted Chest Chest palpation & inspection: normal inspection of the chest Resp Effort & Inspection: normal respiratory effort Auscultation: clear to auscultation bilaterally Cardio Rate: regular rate Rhythm: regular rhythm Heart sounds: S1 normal heart sound present, S2 normal heart sound present, no gallops, no murmurs and no rubs Bruits: no abdominal aortic bruits and no carotid bruits GI Palpation (GI): No Abdominal aortic bruit present, Soft to palpation, nontender, No hepatosplenomegaly present and No Rebound tenderness present Auscultation: normal bowel sounds General: Yes no CVA tenderness Back/Spine/Pelvis Back: no CVA tenderness Cervical Spine: cervical ROM normal and No Cervical spine tenderness Thoracic/Lumbar Spine: thoraco-lumbar ROM normal, No pain with thoraco-lumbar ROM, No thoracic spinal tenderness and No lumbar spinal tenderness Skin General: warm and dry. Normal skin color. Normal skin turgor Lesions: no lesions Rashes: no rashes Trauma: no lacerations or abrasions Wounds: no wounds Nails: normal Neuro General: patient oriented x3, gait normal and CN's II-XI intact bilaterally Cranial nerves: Yes Equal, round and reactive pupils present Cognition (Neuro): normal cognition Gait exam (Neuro): Normal gait present Motor exam (neuro): 5/5 motor strength present throughout Sensory Exam: No Sensory deficit (Neuro) Deep tendon reflexes (DTR's): Right patellar reflex intensity grade: 2+ and Left patellar reflex intensity grade: 2+ Extrem General: Yes normal to inspection, No edema and No calf tenderness Psych Appearance: grossly normal Affect: normal affect Attitude: cooperative Thought process: Normal thought process present Coding Level of Care Code Tele Est Pt Level 3 (72377) Est Pt Prev Care 40-64y(22792) Diagnoses Normal physical examination, routine Z00.00 Anxiety F41.9 Depression F32.A Obesity (BMI 30-39.9) E66.9 Sleep disturbance G47.9 Elevated fasting glucose R73.01 Elevated LDL cholesterol level E78.00 Thrombocytosis D75.839 Elevated blood pressure reading without diagnosis of hypertension R03.0 Engages in vaping Z72.89 Additional Codes JG-7 Assessment Billing - JG-7 Assessment Tool: JG-7 Assessment 96722 ([id number]) PHQ-9 - 37864 - PHQ-9 Billing: Yes ([id number]) Assessment & Plan Assessment & Plan (1) Normal physical examination, routine: Code(s): Z00.00 - Encounter for general adult medical examination without abnormal findings Category: Medical Plan: No significant functional limitation noted. Healthy diet and routine exercise encouraged. Perform fasting lab work before next visit. Follow-up for recent ED discharge follow-up, elevated BP, and labs review in 2-3 weeks. Return sooner with symptoms or concerns. Verbalized understanding and agreed with the plan. (2) Anxiety: Code(s): F41.9 - Anxiety disorder, unspecified Category: Medical Plan: Anxiety and depression: She notes that she has been feeling very anxious since she woke up this morning because i have a lot of things going on. She denies depression. Denies SI/HI/AVH. Notes history of taking lorazepam few years ago. Saw a therapist once. No history of psychiatrist. Declines psychotropic medications or referral to psychotherapy. PHQ-9 and JG-7 scores revealed mild depression and anxiety. Declines treatment or psychotherapy referral at this time. Routine exercise encouraged. Follow-up as needed. Verbalized understanding and agreed with the plan. (3) Depression: Code(s): F32.A - Depression, unspecified Category: Medical Plan: Plan as above. (4) Obesity (BMI 30-39.9): Code(s): E66.9 - Obesity, unspecified Category: Medical Plan: She currently weighs 216 lb, BMI is 38.3. Declines referral to industrial hygienist/dietitian or weight management clinic. Healthy diet and routine exercise encouraged. Follow-up as needed. Verbalized understanding and agreed with the plan. (5) Sleep disturbance: Code(s): G47.9 - Sleep disorder, unspecified Category: Medical Plan: Reports difficulty maintaining sleep; sleeps an average of 5 hours nightly, initial sleep study in 2019 revealed sleep apnea, repeat sleep study 1-2 years later was normal. Instructed on sleep hygiene. Referred to [facility] on 12/17/2024. Follow-up as needed. Verbalized understanding and agreed with the plan. (6) Elevated fasting glucose: Code(s): R73.01 - Impaired fasting glucose Category: Medical Plan: Recent fasting glucose is slightly elevated, 105. Healthy diet and routine exercise encouraged. Fast for 10-12 hours, and perform lab work before next visit. Follow-up for telehealth visit in 2-3 weeks. Verbalized understanding and agreed with the plan. (7) Elevated LDL cholesterol level: Code(s): E78.00 - Pure hypercholesterolemia, unspecified Category: Medical Plan: Recent LDL level is slightly elevated, 109. Triglycerides, total cholesterol, and HDL levels are normal. Advised to limit foods high in saturated fat and avoid foods high in trans fat. Routine exercise encouraged. Will monitor lipid panel levels annually or as needed. Verbalized understanding and agreed with the plan. (8) Thrombocytosis: Code(s): D75.839 - Thrombocytosis, unspecified Category: Medical Plan: Recent platelet level is elevated, 524. Recent H&H normal. No known cause. Will recheck the levels and make changes as needed. Verbalized understanding and agreed with the plan. (9) Elevated blood pressure reading without diagnosis of hypertension: Code(s): R03.0 - Elevated blood-pressure reading, without diagnosis of hypertension Category: Medical Plan: Resting blood pressure is 146/86, above goal of less than 140/90. Likely related to anxiety or poor diet. Low-sodium diet and routine exercise encouraged. Follow-up in 2-3 weeks or sooner with symptoms or concerns. Verbalized understanding and agreed with the plan. (10) Engages in vaping: Code(s): Z72.89 - Other problems related to lifestyle Category: Medical Plan: She vapes nicotine occasionally, and have been vaping on/off for the past 6 months. Instructed on the health risks and complications of vaping and nicotine and cessation encouraged. Declines medication treatment for nicotine. Advised to follow-up as needed. Verbalized understanding and agreed with the plan. Orders: Orders Glucose Fasting Today R73.01 - Impaired fasting glucose Platelet Count Today D75.839 - Thrombocytosis, unspecified
--- OUTSIDE RECORDS SUMMARY | 2025-02-11 07:59 | XMS_ITS | Clinical Summary ---
Author Organization [facility] [address] [place] [address] [place] [phone] Phone Care Team Providers Care Account Relationship Manager Name Role Phone Stef Garcia DO Primary [...] VITAMINS ORAL) Take by mouth. 0 Active HYDROcodone-ricki taminophen (NORCO) 5-325 mg per tablet Take 1 tablet by mouth every 6 (six) hours if needed for severe pain for up to 3 days. Max Daily Amount: 4 tablets 12 tablet 5 02/05/20 25 amoxicillin-cla vulanate (AUGMENTIN) 875-125 mg per tablet Take 1 tablet by mouth every 12 (twelve) hours for 7 days. 14 tablet 5 02/09/20 25 Active Problems Problem Noted Date Diagnosed Date Severe obesity (BMI 35.0-39. 9) with comorbidity ([facility] V24, [facility] V28) 06/14/2024 Overview (06/14/2024): s/p sleeve gastrectomy in May 2018 SADIE (obstructive sleep apnea) 06/14/2024 Hidradenitis suppurativa 06/14/2024 Overview (06/14/2024): axillary resolved with surgery, minor in groin Eczema 06/14/2024 Overview (06/14/2024): childhood, and likely foot right Diabetes mellitus type 2, co ntrolled ([facility] V24, [facility] V28) 2020 Seasonal allergic rhinitis due to pollen 021 Allergic conjunctivitis, bilateral 07/29/2020 COVID-19 virus infection 04/21/2020 Intestinal malabsorption following gastrectomy 0 09/27/2018 Anxiety 06/13/2013 Vitamin D insufficiency 03/22/2013 Insomnia 02/28/2012 Depression 02/28/2012 Encounters Date Type Department Care Team Description 02/01/2025 12:30 PM EDT - 02/01/2025 7:01 PM EDT Emergency [facility] Emergency [address] [place] [phone] Darrell Jackson MD Inflammatory bowel disease (Primary Dx) Discharge Disposition: Home or Self Care 12/11/2024 6:15 PM EDT - 12/11/2024 8:39 PM EDT Emergency [facility] Emergency [address] [place] [phone] Sprain of right ankle, unspecified ligament, initial encounter (Primary Dx); Closed avulsion fracture of metatarsal bone of right foot, initial encounter Discharge Disposition: Home or Self Care 11/19/2024 2:18 PM EDT - 11/19/2024 11:59 PM EDT Hospital Encounter Radiology Department - [address] [phone] Breast lump Discharge Disposition: Home or Self Care 11/19/2024 2:18 PM EDT - 11/19/2024 11:59 PM EDT Hospital Encounter Radiology Department - [address] [phone] Mass of right breast, unspecified quadrant Discharge [...] APPENDECTOMY 2003 PROCEDURE: HISTORICAL APPENDECTOMY SECTION PROCEDURE: [place] DELIVERY ONLY TONSILLECTOMY age 14 PROCEDURE: HISTORICAL TONSILLECTOMY APPENDECTOMY 2003 PROCEDURE: [place] APPENDECTOMY TUBAL LIGATION 2004 PROCEDURE: HISTORICAL TUBAL [...] COMMENT: Mony BREAST BIOPSY 2018 Right PROCEDURE: [place] BX BREAST W/DEVICE 1ST LESION ULTRASOUND GUID; COMMENT: right b9 BREAST REDUCTION 2001 Bilateral PROCEDURE: [place] BREAST REDUCTION BREAST SURGERY 06/12/2014 Right PROCEDURE: [place] UNLISTED PROCEDURE BREAST; COMMENT: fibroadenoma BREAST SURGERY 2019 Right PROCEDURE: [place] UNLISTED PROCEDURE BREAST; COMMENT: right mass removed [...] CS-Un spec Livin g Marsis ol Delivery Location:[facility] 000 Term 40w 0d 3402 g (120 oz) M Vag-S pont Livin g Schuyler Delivery Location:[facility] 005 Term 40w 0d 4026 g (142 oz) F Vag-S pont Livin g Lissy Delivery Location:[facility] Last Filed Vital Signs Vital Sign Reading [...] Signed Date: 02/01/2025 16:56 ET Workstation ID: [id number] Transcribed By: Self Edit Transcribed Date: 02/01/2025 [...] Signed Date: 02/01/2025 16:56 ET Workstation ID: [id number] Transcribed By: Self Edit Transcribed Date: 02/01/2025 [...] CBC auto differential (02/01/2025 12:44 PM EDT) [facility] WBC 9.2 4.8 - 10.8 K/mcL LAB HEMETOLOGY METHOD 02/01/2025 1:30 PM EDT [facility] RBC 4.80 3.80 - 4.80 M/mcL LAB HEMETOLOGY METHOD 02/01/2025 1:30 PM EDT [facility] Hemoglobin 13.0 11.5 - 16.0 g/dL LAB HEMETOLOGY METHOD 02/01/2025 1:30 PM EDT [facility] Hematocrit 40.9 35.0 - 47.0 % LAB HEMETOLOGY METHOD 02/01/2025 1:30 PM EDT [facility] MCV 86.1 79.0 - 98.0 FL LAB HEMETOLOGY METHOD 02/01/2025 1:30 PM EDT [facility] MCH 27.4 27.0 - 32.0 pcg LAB HEMETOLOGY METHOD 02/01/2025 1:30 PM EDT [facility] MCHC 31.8(L) 32.0 - 37.0 g/dL LAB HEMETOLOGY METHOD 02/01/2025 1:30 PM EDT [facility] RDW 13.8 11.0 - 15.0 % LAB HEMETOLOGY METHOD 02/01/2025 1:30 PM EDT [facility] Platelets 418(H) 130 - 400 K/mcL LAB HEMETOLOGY METHOD 02/01/2025 1:30 PM EDT [facility] MPV 9.4 7.0 - 11.0 FL LAB HEMETOLOGY METHOD 02/01/2025 1:30 PM EDT [facility] NRBC 0.0 <1.0 % LAB HEMETOLOGY METHOD 02/01/2025 1:30 PM EDT [facility] NRBC Absolute 0.00 <0.10 K/mcL LAB [facility] Neut[facility]ils Relative 74.8 % LAB HEMETOLOGY METHOD 02/01/2025 1:30 PM EDT [facility] Lymphocytes Relative 16.1 % LAB HEMETOLOGY METHOD 02/01/2025 1:30 PM EDT [facility] Monocytes Relative 8.3 % LAB [facility]OLOGY [facility] Eosinophils Relative 0.3 % LAB HEMETOLOGY METHOD [facility]25 [facility] Basophils Relative 0.2 % LAB HEMETOLOGY METHOD 02/01/2025 1:30 PM EDT [facility] Immature Granulocytes Relative 0.3 % LAB HEMETOLOGY METHOD 02/01/2025 1:30 PM EDT [facility] Neutrophils Absolute 6.85 1.50 - 7.00 K/mcL LAB HEMETOLOGY METHOD [facility] Lymphocytes Absolute 1.48 1.00 - 5.00 K/mcL LAB HEMETOLOGY METHOD 02/01/2025 1:30 PM EDT [facility] Monocytes Absolute 0.76 0.20 - 1.00 K/mcL LAB HEMETOLOGY METHOD 02/01/2025 1:30 PM EDT [facility] Eosinophils Absolute 0.03 0.00 - 0.50 K/mcL LAB HEMETOLOGY METHOD 02/01/2025 1:30 PM EDT [facility] Basophils Absolute 0.02 0.00 - 0.20 K/mcL LAB HEMETOLOGY METHOD 02/01/2025 1:30 PM EDT [facility] Immature Granulocytes Absolute 0.03 0.00 - 0.03 K/mcL LAB HEMETOLOGY METHOD 02/01/2025 1:30 PM EDT [facility] Blood Venous blood specimen / Unknown Venipuncture / Unknown 02/01/2025 12:44 PM EDT 02/01/2025 1:19 PM EDT us Darrell Jackson MD LAB BLOOD ORDERABLES Final Resul t Performing Organization Address City/[facility]/ZIP Co de Phone Number [facility] [address] [place] [address], [place] [phone] * Lipase (02/01/2025 12:44 PM EDT) [facility] Lipase 35 13 - 75 unit/L LAB CHEMISTRY METHOD 02/01/2025 1:59 PM EDT [facility] Blood Venous blood specimen / Unknown Venipuncture / Unknown 02/01/2025 12:44 PM EDT 02/01/2025 1:19 PM EDT us Darrell Jackson MD LAB BLOOD ORDERABLES Final Resul t Performing Organization Address City/[facility]/ZIP Co de Phone Number [facility] [address] [place] [address], [place] [phone] * Comprehensive metabolic panel (02/01/2025 12:44 PM EDT) Sodium 137 133 - 145 mmol/L LAB CHEMISTRY METHOD 02/01/2025 1:59 PM [facility] Potassium 4.1 3.5 - 5.5 mmol/L LAB CHEMISTRY METHOD 02/01/2025 1:59 PM [facility] Comment:Hemolysis present Chloride 104 96 - 110 mmol/L LAB CHEMISTRY METHOD 02/01/2025 1:59 PM [facility] CO2 28 21 - 32 mmol/L LAB CHEMISTRY METHOD 02/01/2025 1:59 PM [facility] Anion Gap 5 3 - 11 LAB CHEMISTRY METHOD 02/01/2025 1:59 PM [facility] Glucose 93 70 - 100 mg/dL LAB CHEMISTRY METHOD 02/01/2025 1:59 PM [facility] BUN 11 5 - 25 mg/dL LAB CHEMISTRY METHOD 02/01/2025 1:59 PM [facility] Creatinine 0.75 0.50 - 1.10 mg/dL LAB CHEMISTRY METHOD 02/01/2025 1:59 PM [facility] eGFR 99 >=60 mL/min/1. 73m2 LAB CHEMISTRY METHOD 02/01/2025 1:59 PM [facility] Comment:Calculation based on the Chronic Kidney Disease Epidemiology Collaboration (CKD-EPI) equation refit without adjustment for race. BUN/Creatinine Ratio 14.7 LAB CHEMISTRY METHOD 02/01/2025 1:59 PM [facility] Calcium 9.6 8.5 - 10.5 mg/dL LAB CHEMISTRY METHOD 02/01/2025 1:59 PM [facility] AST (SGOT) 16 10 - 42 unit/L LAB CHEMISTRY METHOD 02/01/2025 1:59 PM [facility] Comment:Hemolysis present ALT (SGPT) 23 10 - 60 unit/L LAB CHEMISTRY METHOD 02/01/2025 1:59 PM EDT [facility] Alkaline Phosphatase 66 42 - 121 unit/L LAB CHEMISTRY METHOD 02/01/2025 1:59 PM EDT [facility] Total Protein 7.2 6.0 - 8.0 g/dL LAB CHEMISTRY METHOD 02/01/2025 1:59 PM EDT [facility] Albumin 3.6 3.2 - 5.0 g/dL LAB CHEMISTRY METHOD 02/01/2025 1:59 PM EDT [facility] Total Bilirubin 0.2 0.0 - 1.4 mg/dL LAB CHEMISTRY METHOD 02/01/2025 1:59 PM EDT [facility] Blood Venous blood specimen / Unknown Venipuncture / Unknown 02/01/2025 12:44 PM EDT 02/01/2025 1:19 PM EDT Darrell Jackson MD LAB BLOOD ORDERABLES Final Resul t [facility] [address] [place] [address], [place] [phone] * XR Foot 3+ Views Right (12/11/2024 [...] Signed Date: 12/11/2024 21:10 ET Workstation ID: [id number] Transcribed By: Self Edit Transcribed Date: 12/11/2024 [...] Signed Date: 12/11/2024 21:10 ET Workstation ID: [id number] Transcribed By: Self Edit Transcribed Date: 12/11/2024 21:10 ET us Fritz Gómez Brownny Diaz DO IMG XR PROCEDURES Final R [...] Signed Date: 12/11/2024 20:52 ET Workstation ID: [id number] Transcribed By: Self Edit Transcribed Date: 12/11/2024 [...] Signed Date: 12/11/2024 20:52 ET Workstation ID: [id number] Transcribed By: Self Edit Transcribed Date: 12/11/2024 20:51 ET us Fritzg Gómez Cirilo Diaz DO IMG XR PROCEDURES [...] is recommended in 1 year. MAMMO LOCATION: [facility], [address] [place] [address], [phone], . -------- FINAL REPORT -------- Dictated By: Lizz Carlton Dictated Date: 11/19/2024 15:22 ET Assigned Physician: Lizz Carlton Reviewed and Electronically Signed By: Lizz Carlton Signed Date: 11/19/2024 15:50 ET Workstation ID: [id number] Transcribed By: Self Edit Transcribed Date: 11/19/2024 [...] is recommended in 1 year. MAMMO LOCATION: [facility], [address] [place] [address], [phone], . -------- FINAL REPORT -------- Dictated By: Lizz Carlton Dictated Date: 11/19/2024 15:22 ET Assigned Physician: Lizz Carlton Reviewed and Electronically Signed By: Lizz Carlton Signed Date: 11/19/2024 15:50 ET Workstation ID: [id number] Transcribed By: Self Edit Transcribed Date: 11/19/2024 [...] is recommended in 1 year. MAMMO LOCATION: [facility], [address] [place] [address], [phone], . -------- FINAL REPORT -------- Dictated By: Lizz Carlton Dictated Date: 11/19/2024 15:22 ET Assigned Physician: Lizz Carlton Reviewed and Electronically Signed By: Lizz Carlton Signed Date: 11/19/2024 15:50 ET Workstation ID: [id number] Transcribed By: Self Edit Transcribed Date: 11/19/2024 [...] is recommended in 1 year. MAMMO LOCATION: [facility], [address] [place] [address], [phone], . -------- FINAL REPORT -------- Dictated By: Lizz Carlton Dictated Date: 11/19/2024 15:22 ET Assigned Physician: Lizz Carlton Reviewed and Electronically Signed By: Lizz Carlton Signed Date: 11/19/2024 15:50 ET Workstation ID: [id number] Transcribed By: Self Edit Transcribed Date: 11/19/2024 15:22 ET us Mohini Miramontes CNM IMG BI PROCEDURES Final Result * Hepatitis C antibody (10/09/2024 4:48 PM EDT) Pathologist [facility] Hepatitis C Antibody Negative Negative LAB CHEMISTRY METHOD 10/09/2024 7:40 PM EDT [facility] Blood Venous blood specimen / Unknown Venipuncture / Unknown 10/09/2024 4:48 PM EDT 10/09/2024 4:48 PM EDT us Mohini Miramontes CNM LAB BLOOD ORDERABLES Final Res ult [facility] [address] [place] [address], [place] [phone] * HIV 1,2 antibody, p24 antigen with reflex to differentiation (10/09/2024 4:48 PM EDT) Pathologist [facility] HIV Combo AB/AG Negative Negative LAB CHEMISTRY METHOD 10/09/2024 7:41 PM EDT [facility] Blood Venous blood specimen / Unknown Venipuncture / Unknown 10/09/2024 4:48 PM EDT 10/09/2024 4:48 PM EDT Narrative [facility] - 10/09/2024 7:41 PM EDT This [...] ORDERABLES Final Res ult Performing Organization Address City/[facility]/ZIP Co de Phone Number [facility] [address] [place] [address], * HPV with reflex genotype (10/09/2024 4:19 PM EDT) [facility] HPV Negative Negative LAB MICROBIOLOGY METHOD 10/12/2024 6:28 AM EDT [facility] Brushing/Spatula Cervix uteri structure / Unknown 10/09/2024 4:19 PM EDT 10/11/2024 5:54 AM EDT Mohini Miramontes [facility] MOLECULAR DIAGNOSTICS ORDE RABLES Final Result Performing Organization Address [facility]/ZIP Co de Phone Number [facility] [address] [place] [address], [place] [phone] * (ABNORMAL) Hemoglobin A1c (01/03/2018) [facility] Hemoglobin A1C 6.8(A) <=6.5 % Blood Venous blood specimen / Unknown Historical Provider LAB BLOOD ORDERABLES Yashira l Result * Lipid panel (01/03/2018) Pathologist [facility] LDL/HDL Ratio 4 0 - 4 Triglycerides 106 0 - 150 mg/dL Cholesterol 162 0 - 200 mg/dL HDL 42 >=40 mg/dL LDL Cholesterol 99 0 - 100 mg/dL Blood Venous blood specimen / Unknown Historical Provider LAB BLOOD ORDERABLES Yashira l Result from Last 3 Months or Most Recently Relevant to Health Maintenance Insurance [facility] PL[facility] Care Teams Account Relationship Manager Relationship Specialty Start Date End Date Stef Garcia DO [facility] [address] [place] [phone] PCP - General Internal Medicine 10/14/20
[2025-02-11 08:07] VITALS: BP 164/72; PULSE 84; TEMP 36.4; O2SAT 100; BMI 38.3
[2025-02-11 08:23] VITALS: BP 146/86
== END 2025-02-11 08:44 | disposition home or self-care (01) ==
LOC: HO.HMCFM 07:57
PROVIDERS: PCP Nurse Practitioner Family; Visit Provider Nurse Practitioner Family
DX: Z00.00 Encounter for general adult medical examination without abnormal findings (principal); F41.9 Anxiety disorder, unspecified; E66.9 Obesity, unspecified; Z68.38 Body mass index [BMI] 38.0-38.9, adult; F32.A Depression, unspecified; G47.9 Sleep disorder, unspecified; R73.01 Impaired fasting glucose; E78.00 Pure hypercholesterolemia, unspecified; D75.839 Thrombocytosis, unspecified; R03.0 Elevated blood-pressure reading, without diagnosis of hypertension; Z72.89 Other problems related to lifestyle

== ENCOUNTER → 2025-02-11 07:57 | Outpatient (BNVA) | payer OTHER, SELFPAY | PROVIDERS: PCP Nurse Practitioner Family; Visit Provider Nurse Practitioner Family | DX: Z00.00 Encounter for general adult medical examination without abnormal findings (principal); F41.9 Anxiety disorder, unspecified; F32.A Depression, unspecified; E66.9 Obesity, unspecified; G47.9 Sleep disorder, unspecified; R73.01 Impaired fasting glucose; E78.00 Pure hypercholesterolemia, unspecified; D75.839 Thrombocytosis, unspecified; R03.0 Elevated blood-pressure reading, without diagnosis of hypertension; Z72.89 Other problems related to lifestyle; Z68.38 Body mass index [BMI] 38.0-38.9, adult | CPT/HCPCS: 96127; 99396 ==

== ENCOUNTER 2025-02-25 08:17 | Outpatient (REF) | payer OTHER, SELFPAY ==
--- OUTSIDE RECORDS SUMMARY | 2025-02-25 08:39 | XMS_ITS | Clinical Summary ---
Author Organization [facility] [address] [place] [address] [place] [phone] Phone Care Team Providers Care Parent Partner Name Role Phone Stef Garcia DO Primary [...] Severe obesity (BMI 35.0-39. 9) with comorbidity ([facility] V24, [facility] V28) 06/14/2024 Overview (06/14/2024): s/p sleeve gastrectomy in May 2018 SADIE (obstructive sleep apnea) 06/14/2024 Hidradenitis suppurativa 06/14/2024 Overview (06/14/2024): axillary resolved with surgery, minor in groin Eczema 06/14/2024 Overview (06/14/2024): childhood, and likely foot right Diabetes mellitus type 2, co ntrolled ([facility] V24, [facility] V28) 2020 Seasonal allergic rhinitis due to pollen 021 Allergic conjunctivitis, bilateral 07/29/2020 COVID-19 virus infection 04/21/2020 Intestinal malabsorption following gastrectomy 0 09/27/2018 Anxiety 06/13/2013 Vitamin D insufficiency 03/22/2013 Insomnia 02/28/2012 Depression 02/28/2012 Encounters Date Type Department Care Team Description 02/01/2025 12:30 PM EDT - 02/01/2025 7:01 PM EDT Emergency [facility] Emergency [address] [place] [phone] Darrell Jackson MD Inflammatory bowel disease (Primary Dx) Discharge Disposition: Home or Self Care 12/11/2024 6:15 PM EDT - 12/11/2024 8:39 PM EDT Emergency [facility] Emergency [address] [place] [phone] Sprain of right ankle, unspecified ligament, initial encounter (Primary Dx); Closed avulsion fracture of metatarsal bone of right foot, initial encounter Discharge Disposition: Home or Self Care from [...] APPENDECTOMY 2003 PROCEDURE: HISTORICAL APPENDECTOMY SECTION PROCEDURE: PA DELIVERY ONLY TONSILLECTOMY age 14 PROCEDURE: HISTORICAL TONSILLECTOMY APPENDECTOMY 2003 PROCEDURE: PA APPENDECTOMY TUBAL LIGATION 2004 PROCEDURE: HISTORICAL TUBAL [...] COMMENT: Mony BREAST BIOPSY 2018 Right PROCEDURE: PA BX BREAST W/DEVICE 1ST LESION ULTRASOUND GUID; COMMENT: right b9 BREAST REDUCTION 2001 Bilateral PROCEDURE: PA BREAST REDUCTION BREAST SURGERY 06/12/2014 Right PROCEDURE: PA UNLISTED PROCEDURE BREAST; COMMENT: fibroadenoma BREAST SURGERY 2019 Right PROCEDURE: PA UNLISTED PROCEDURE BREAST; COMMENT: right mass removed [...] CS-Un spec Livin g Marsis ol Delivery Location:[facility] 000 Term 40w 0d 3402 g (120 oz) M Vag-S pont Livin g Schuyler Delivery Location:[facility] 005 Term 40w 0d 4026 g (142 oz) F Vag-S pont Livin g Lissy Delivery Location:[facility] Filed Vital Signs Vital Sign Reading Time [...] 02/01/2025, 07/07/2024, 09/06/2019 Breast Cancer Screening 11/19/2026 11/20/19, 08/03/2021, 07/29/2020, Additional history exists Cervical Cancer [...] XR ANKLE 3+ VIEWS RIGHT STAT 12/12/19 25 5:56 PM EDT MG MAMMO DIGITAL DIAGNOSTIC W SUNDAR BILAT [...] Signed Date: 02/01/2025 16:56 ET Workstation ID: [id number] Transcribed By: Self Edit Transcribed Date: 02/01/2025 [...] Signed Date: 02/01/2025 16:56 ET Workstation ID: [id number] Transcribed By: Self Edit Transcribed Date: 02/01/2025 [...] CBC auto differential (02/01/2025 12:44 PM EDT) [facility] WBC 9.2 4.8 - 10.8 K/mcL LAB HEMETOLOGY METHOD 02/01/2025 1:30 PM EDT [facility] RBC 4.80 3.80 - 4.80 M/mcL LAB HEMETOLOGY METHOD 02/01/2025 1:30 PM EDT [facility] Hemoglobin 13.0 11.5 - 16.0 g/dL LAB HEMETOLOGY METHOD 02/01/2025 1:30 PM EDT [facility] Hematocrit 40.9 35.0 - 47.0 % LAB [facility]OLOG[facility] MCV 86.1 79.0 - 98.0 FL LAB HEMETOLOGY METHOD 02/[facility]2025 [facility] MCH 27.4 27.0 - 32.0 pcg LAB HEMETOLOGY METHOD 02/01[facility]2025 [facility] MCHC 31.8(L) 32.0 - 37.0 g/dL LAB HEMETOLOGY METHOD 02/01/2025 [facility] RDW 13.8 11.0 - 15.0 % LAB HEMETOLOGY METHOD 02/01/2025 1:30 PM EDT [facility] Platelets 418(H) 130 - 400 K/mcL LAB HEMETOLOGY METHOD 02/01[facility]2025 [facility] MPV 9.4 7.0 - 11.0 FL LAB HEMETOLOGY METHOD 02/01/2025 1[facility] NRBC 0.0 <1.0 % LAB HEMETOLOGY METHOD 02/01/2025 1:30 PM EDT [facility] NRBC Absolute 0.00 <0.10 K/mcL LAB HEMETOLOGY METHOD 02/01/2025 1:30 PM EDT [facility] Neutrophils Relative 74.8 % LAB HEMETOLOGY METHOD 02/01[facility]2025 [facility] Lymphocytes Relative 16.1 % LAB HEMETOLOGY METHOD 02/01/2025 1[facility] Monocytes Relative 8.3 % LAB HEMETOLOGY METHOD 02/01/2025 1:[facility] Eosinophils Relative 0.3 % LAB HEMETOLOGY METHOD 02/01/2025 1:30 PM [facility] Basophils Relative 0.2 % LAB HEMETOLOGY METHOD 02/01/2025 1:30 PM [facility] Immature Granulocytes Relative 0.3 % LAB HEMETOLOGY METHOD 02/01/2025 1:30 PM [facility] Neutrophils Absolute 6.85 1.50 - 7.00 K/mcL LAB HEMETOLOGY METHOD 02/01/2025 1:30 PM [facility] Lymphocytes Absolute 1.48 1.00 - 5.00 K/mcL LAB HEMETOLOGY METHOD 02/01/2025 1:30 PM [facility] Monocytes Absolute 0.76 0.20 - 1.00 K/mcL LAB HEMETOLOGY METHOD 02/01/2025 1:30 PM [facility] Eosinophils Absolute 0.03 0.00 - 0.50 K/mcL LAB HEMETOLOGY METHOD 02/01/2025 1:30 PM [facility] Basophils Absolute 0.02 0.00 - 0.20 K/mcL LAB HEMETOLOGY METHOD 02/01/2025 1:30 PM [facility] Immature Granulocytes Absolute 0.03 0.00 - 0.03 K/mcL LAB HEMETOLOGY METHOD 02/01/2025 1:30 PM EDT [facility] Blood Venous blood specimen / Unknown Venipuncture / Unknown 02/01/2025 12:44 PM EDT 02/01/2025 1:19 PM EDT Darrell Jackson MD LAB BLOOD ORDERABLES Final Resul t Performing Organization Address City/[facility]/ZIP Co de Phone Number [facility] [address] [place] [address], [place] [phone] * Lipase (02/01/2025 12:44 PM EDT) Lipase 35 13 - 75 unit/L LAB CHEMISTRY METHOD 02/01/2025 1:59 PM EDT [facility] Blood Venous blood specimen / Unknown Venipuncture / Unknown 02/01/2025 12:44 PM EDT 02/01/2025 1:19 PM EDT us Darrell Jackson MD LAB BLOOD ORDERABLES Final Resul t Performing Organization Address [facility]/ZIP Co de Phone Number [facility] [address] [place] [address], [place] [phone] * Comprehensive metabolic panel (02/01/2025 12:44 PM EDT) Sodium 137 133 - 145 mmol/L LAB CHEMISTRY METHOD 02/01/2025 1:59 PM EDT [facility] Potassium 4.1 3.5 - 5.5 mmol/L LAB CHEMISTRY METHOD 02/01/2025 1:59 PM EDT [facility] Comment:Hemolysis present Chloride 104 96 - 110 mmol/L LAB CHEMISTRY METHOD 02/01/2025 1:59 PM EDT [facility] CO2 28 21 - 32 mmol/L LAB CHEMISTRY METHOD 02/01/2025 1:59 PM EDT [facility] Anion Gap 5 3 - 11 LAB CHEMISTRY METHOD 02/01/2025 1:59 PM [facility] Glucose 93 70 - 100 mg/dL LAB CHEMISTRY METHOD 02/01/2025 1:59 PM [facility] BUN 11 5 - 25 mg/dL LAB CHEMISTRY METHOD 02/01/2025 1:59 PM [facility] Creatinine 0.75 0.50 - 1.10 mg/dL LAB CHEMISTRY METHOD 02/01/2025 1:59 PM [facility] eGFR 99 >=60 mL/min/1. 73m2 LAB CHEMISTRY METHOD 02/01/2025 1:59 PM [facility] Comment:Calculation based on the Chronic Kidney Disease Epidemiology Collaboration (CKD-EPI) equation refit without adjustment for race. BUN/Creatinine Ratio 14.7 LAB CHEMISTRY METHOD 02/01/2025 1:59 PM [facility] Calcium 9.6 8.5 - 10.5 mg/dL LAB CHEMISTRY METHOD 02/01/2025 1:59 PM [facility] AST (SGOT) 16 10 - 42 unit/L LAB CHEMISTRY METHOD 02/01/2025 1:59 PM [facility] Comment:Hemolysis present ALT (SGPT) 23 10 - 60 unit/L LAB CHEMISTRY METHOD 02/01/2025 1:59 PM [facility] Alkaline Phosphatase 66 42 - 121 unit/L LAB CHEMISTRY METHOD 02/01/2025 1:59 PM [facility] Total Protein 7.2 6.0 - 8.0 g/dL LAB CHEMISTRY METHOD 02/01/2025 1:59 PM [facility] Albumin 3.6 3.2 - 5.0 g/dL LAB CHEMISTRY METHOD 02/01/2025 1:59 PM [facility] Total Bilirubin 0.2 0.0 - 1.4 mg/dL LAB CHEMISTRY METHOD 02/01/2025 1:59 PM [facility] Blood Venous blood specimen / Unknown Venipuncture / Unknown 02/01/2025 12:44 PM EDT 02/01/2025 1:19 PM EDT us Darrell Jackson MD LAB BLOOD ORDERABLES Final Resul t [facility] [address] [place] [address], * XR Foot 3+ Views Right (12/11/2024 [...] Signed Date: 12/11/2024 21:10 ET Workstation ID: [id number] Transcribed By: Self Edit Transcribed Date: 12/11/2024 [...] Date: 12/11/2024 21:09 ET Assigned Physician: Rebel Herrrea Reviewed and Electronically Signed By: Rebel Herrera Signed Date: 12/11/2024 21:10 ET Workstation ID: [id number] Transcribed By: Self Edit Transcribed Date: 12/11/2024 [...] Signed Date: 12/11/2024 20:52 ET Workstation ID: [id number] Transcribed By: Self Edit Transcribed Date: 12/11/2024 [...] Signed Date: 12/11/2024 20:52 ET Workstation ID: [id number] Transcribed By: Self Edit Transcribed Date: 12/11/2024 20:51 ET us Lissette Diaz DO IMG XR PROCEDURES Final R esult * MG Mammo Digital Diagnostic w Sundar [...] is recommended in 1 year. MAMMO LOCATION: [facility], [address] [place] [address], [id number], . -------- FINAL REPORT -------- Dictated By: Lizz Carlton Dictated Date: 11/19/2024 15:22 ET Assigned Physician: Lizz Carlton Reviewed and Electronically Signed By: Lizz Carlton Signed Date: 11/19/2024 15:50 ET Workstation ID: [id number] Transcribed By: Self Edit Transcribed Date: 11/19/2024 [...] is recommended in 1 year. MAMMO LOCATION: [facility], [address] [place] [address], [id number], . -------- FINAL REPORT -------- Dictated By: Lizz Carlton Dictated Date: 11/19/2024 15:22 ET Assigned Physician: Lizz Carlton Reviewed and Electronically Signed By: Lizz Carlton Signed Date: 11/19/2024 15:50 ET Workstation ID: [id number] Transcribed By: Self Edit Transcribed Date: 11/19/2024 15:22 ET us Mohini Miramontes SANJUANITA IMG BI PROCEDURES Final Result * Hepatitis C antibody (10/09/2024 4:48 PM EDT) [facility] Hepatitis C Antibody Negative Negative LAB CHEMISTRY METHOD 10/09/2024 7:40 PM EDT [facility] Blood Venous blood specimen / Unknown Venipuncture / Unknown 10/09/2024 4:48 PM EDT 10/09/2024 4:48 PM EDT us Mohini Miramontes [facility] LAB BLOOD ORDERABLES Final Res ult [facility] [address] [place] [address], [place] [phone] * HIV 1,2 antibody, p24 antigen with reflex to differentiation (10/09/2024 4:48 PM EDT) [facility] HIV Combo AB/AG Negative Negative LAB CHEMISTRY [...] the current CDC recommendation for HIV screening. us Mohini Miramontes [facility] BLOOD ORDERABLES Final Res ult Performing Organization Address City/[facility]/ZIP Co de Phone Number [facility] [address] [place] [address], [place] [phone] * HPV with reflex genotype (10/09/2024 4:19 PM EDT) [facility] HPV Negative Negative LAB MICROBIOLOGY METHOD 10/12/2024 6:28 AM EDT [facility] Brushing/Spatula Cervix uteri structure / Unknown 10/09/2024 4:19 PM EDT 10/11/2024 5:54 AM EDT Mohini Miramontes CNM LAB MOLECULAR DIAGNOSTICS ADY NETTLES Final Result [facility] [address] [place] [address], * (ABNORMAL) Hemoglobin A1c (01/03/2018) Pathologist [facility] Hemoglobin A1C 6.8(A) <=6.5 % Blood Venous [...] Most Recently Relevant to Health Maintenance Insurance [facility] [employer] Care Teams Parent Partner Relationship Specialty Start Date End Date Stef Garcia DO [facility] [address] [place] [id number] PCP - General Internal Medicine 10/14/20
[2025-02-25 13:14] LABS: Appearance Urine Clear; Glucose Urine UA Negative (Negative); PH 7.0 (5.0-9.0); Specific Gravity - Urine 1.020 (1.005-1.025); UMIC TRIGGER UACC YES
[2025-02-25 13:28] LABS: Platelet Count 416 X10*3/uL (160-400)
== END 2025-02-25 08:18 | disposition home or self-care (01) ==
LOC: HO.HKASLDS 08:17
PROVIDERS: Visit Provider Nurse Practitioner Family
DX: Z00.00 Encounter for general adult medical examination without abnormal findings (principal); D75.839 Thrombocytosis, unspecified; R73.01 Impaired fasting glucose
CPT/HCPCS: 36415; 81001; 82947; 85049

== ENCOUNTER 2025-02-26 09:21 | Outpatient (AMB) | payer OTHER, SELFPAY ==
--- NOTE | 2025-02-26 09:26 | A.OFFPC_ITS ---
Vital Signs 02/26/25 09:47 Height 5 ft 3 in Weight 218 lb BMI 38.6 BP 133/75 Blood Pressure Location Rt brachial Respiration 16 Pulse 82 Pulse Source Pulse Oximeter Temp 98.9 F Temp Source Oral Pulse Oximetry (%) 100 Oxygen Delivery Method Room Air Intake Visit Reasons: ed follow up/lab review/evelvated bp Intake Note: Ivonne presents in the office today for Follow up for lab review and elevated BP. 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 Is last menstrual period known: Yes Last menstrual period: 02/09/25 Post menopausal: No Patient : No Allergies Seasonal Allergies Allergy (Verified 02/26/25 09:51) COngested shellfish derived (shellfish) Allergy (Verified 02/26/25 09:51) Shortness of Breath Sour sop Allergy (Uncoded 02/26/25 09:51) Swelling Medication List - Last Reconciled 02/26/25 by Ken Ridley CNP No Known Home Meds Tobacco use date assessed: 02/26/25 Dental Screening Dental Screen Date: 02/26/25 Did you have a dental visit in the last 12 months?: No Did you have a dental problem in the last 6 months where you did not have access to dental care?: No Was dental information given to patient?: Yes HPI HPI Comments History of Present Illness Details 49-year-old female presents for elevated blood pressure and elevated glucose follow-up. She admits to making healthy dietary choices. She has not started exercising but intends to do so. She stopped vaping nicotine a week ago. She offers no complaints and denies acute symptoms at this time. She was recently evaluated at [facility] ED for GI symptoms and was diagnosed with IBD. However, ED record not currently available for ED follow-up. Will perform ED follow-up once record becomes available. [facility] Medical History (Updated 02/11/25 @ 08:42 by Ken Ridley CNP) Inflammatory bowel diseases (IBD) Hydradenitis TMJ (dislocation of temporomandibular joint) Foot injury Eczema Depression Anxiety Surgical History (Updated 12/17/24 @ 09:00 by Becca Kahn MA) H/O gastric sleeve H/O: History of adenoidectomy History of tonsillectomy H/O tubal ligation History of cholecystectomy Hx of appendectomy History of bilateral breast reduction surgery Family History Maternal Grandmother High blood pressure High cholesterol Diabetes Cardiovascular disease Mother Diabetes Maternal Aunt Lung cancer Social History (Updated 02/11/25 @ 08:06 by Bella Fish MA) Housing: House Alcohol intake: current Comment: Social Patient Tobacco Use Status: Never used Tobacco e-Cigarette/Vaping Use: Never Used Second Hand Smoke Exposure: No service: No Current occupational status: unemployed Current occupational exposures/hazards: No Cognitive needs: No Hearing needs: No Vision needs: No Female Reproductive History Menstrual Date of last menstrual period: 02/09/25 Questionnaire Thrive Questionnaire Date Thrive assessed: 12/17/24 I am a: Patient What is your living situation today?: I choose not to answer this question Within the past 12 months, did the food you bought not last and you didn't have the money to get more?: I choose not to answer this question Within the past 12 months, did you worry whether your food would run out before you got money to buy more?: I choose not to answer this question Do you have trouble paying for medicines?: I choose not to answer this question Do you have trouble getting transportation to medical appointments?: I choose not to answer this question Do you have trouble paying your heating and electricity bill?: I choose not to answer this question Do you have trouble taking care of your child, family member or friend?: I choose not to answer this question Do you have trouble with day-to-day activities such as bathing, preparing meals, shopping, managing finances, etc.?: I choose not to answer this question Are you currently unemployed and looking for a job?: I choose not to answer this question Are you interested in more education?: I choose not to answer this question Please select the resources that you would like help with: None Currently or been in a relationship where the following occur: I choose not to answer THRIVE Score: 0 JG-7 AMB Questionnaire JG-7 Date JG - 7 assessed: 02/11/25 Source: Developed by Drs. Stef Garduno, Ivett Domingo, Johnny Healy and colleagues, with an educational teresita from [employer]. Review of Systems Const Details: Const Denies chills, Denies fatigue, Denies fever(s), Denies headache(s) and Denies weakness ENT Denies dizziness and Denies headache(s) Card Denies chest pain, Denies lightheadedness, Denies dyspnea and Denies other (Palpitations) Resp Denies cough, Denies dyspnea, Denies wheezing and Denies other ( shortness of breath) GI Denies abdominal pain, Denies melena, Denies hematochezia, Denies change in bowel habits, Denies dyspepsia and Denies nausea Denies hematuria and Denies dysuria Musc Denies abnormal gait, Denies myalgias, Denies arthralgias, Denies numbness and Denies tingling Skin/Breast Denies rash, Denies unusual bruising and Denies wounds Neuro Denies abnormal gait, Denies dizziness, Denies headache(s), Denies memory loss, Denies numbness, Denies Sensory deficit (Neuro), Denies tingling and Denies weakness Psych Denies anxiety, Denies depression, Denies memory loss Endo Denies cold intolerance, Denies fatigue, Denies heat intolerance, Denies polydipsia and Denies polyuria Aller/Immun Denies wheezing Physical exam (Primary Care) Vital Signs: Last Vital Signs Temp 98.9 F 02/26/25 09:47 Pulse 82 02/26/25 09:47 Resp 16 02/26/25 09:47 BP 133/75 02/26/25 09:47 Pulse Ox 100 02/26/25 09:47 Oxygen Delivery Method Room Air 02/26/25 09:47 BMI result Body Mass Index 38.6 Tobacco/Smoking Status: Tobacco use Status Tobacco use date assessed 02/26/25 02/26/25 09:48 Patient Tobacco Use Status Never used Tobacco 02/26/25 09:26 e-Cigarette/Vaping Use Never Used 02/26/25 09:26 Thrive Assessment: Date of Thrive Assessment Date Thrive assessed 12/17/24 02/26/25 09:26 Currently or been in a relationship where the following occur: I choose not to answer Const Other: General: no acute distress and well developed Nutritional Appearance: well nourished Orientation/consciousness: patient oriented x3 HENMT Head: Yes normocephalic and Yes atraumatic Eyes General: appearance normal, both eyes and all related structures Pupils: Equal, round and reactive pupils present EOM: EOMs intact bilaterally Resp Effort & Inspection: normal respiratory effort Auscultation: clear to auscultation bilaterally Cardio Rate: regular rate Rhythm: regular rhythm Heart sounds: S1 normal heart sound present, S2 normal heart sound present, no gallops, no murmurs and no rubs GI Palpation (GI): No Abdominal aortic bruit present, Soft to palpation, nontender, No hepatosplenomegaly present and No Rebound tenderness present Auscultation: normal bowel sounds General: Yes no CVA tenderness Back/Spine/Pelvis Back: no CVA tenderness Cervical Spine: cervical ROM normal and No Cervical spine tenderness Thoracic/Lumbar Spine: thoraco-lumbar ROM normal, No pain with thoraco-lumbar ROM, No thoracic spinal tenderness and No lumbar spinal tenderness Extrem General: Yes normal to inspection, No edema and No calf tenderness Skin General: warm and dry. Normal skin color. Normal skin turgor Neuro General: patient oriented x3, gait normal and no focal neuro deficit Cranial nerves: Yes Equal, round and reactive pupils present Cognition (Neuro): normal cognition Gait exam (Neuro): Normal gait present Sensory Exam: No Sensory deficit (Neuro) Psych Appearance: grossly normal Affect: normal affect Attitude: cooperative Thought process: Normal thought process present Results AMB Hemoglobin A1c AMB Hemoglobin A1c 5.6 % Last Edit by Becca Kahn MA on 02/26/25 10:21 Coding Level of Care Code Est Pt Level 4 (95892) Diagnoses Elevated fasting glucose R73.01 Thrombocytosis D75.839 Elevated blood pressure reading without diagnosis of hypertension R03.0 Assessment & Plan Assessment & Plan (1) Elevated fasting glucose: Code(s): R73.01 - Impaired fasting glucose Category: Medical Plan: Recent fasting glucose levels were elevated, 105 and 107. A1c today is 5.6%, normal. Healthy diet and routine exercise encouraged. Will monitor fasting glucose annually or as needed. Follow-up for an extended physical exam next year. Return sooner with symptoms or concerns. Verbalized understanding and agreed with the plan. (2) Thrombocytosis: Code(s): D75.839 - Thrombocytosis, unspecified Category: Medical Plan: Recent platelet count is slightly elevated, 416 from 524. Will monitor platelet level periodically or as needed. Verbalized understanding and agreed with the plan. (3) Elevated blood pressure reading without diagnosis of hypertension: Code(s): R03.0 - Elevated blood-pressure reading, without diagnosis of hypertension Category: Medical Plan: Blood pressure today is 133/75, within goal of less than 140/90. Routine exercise and healthy diet, including low-sodium encouraged. Verbalized understanding and agreed with the plan. Orders: Orders AMB Hemoglobin A1c Today Z13.9 - Encounter for screening, unspecified
[2025-02-26 09:47] VITALS: BP 133/75; PULSE 82; RESP 16; TEMP 37.2; O2SAT 100; BMI 38.6
--- OUTSIDE RECORDS SUMMARY | 2025-02-26 09:47 | XMS_ITS | Clinical Summary ---
Author Organization [facility] [address] [place] [address] [place] [phone] Phone Care Team Providers Care Deli Department Manager Name Role Phone Stef Garcia DO [...] Severe obesity (BMI 35.0-39. 9) with comorbidity ([facility] V24, [facility] V28) 06/14/2024 Overview (06/14/2024): s/p sleeve gastrectomy in May 2018 SADIE (obstructive sleep apnea) 06/14/2024 Hidradenitis suppurativa 06/14/2024 Overview (06/14/2024): axillary resolved with surgery, minor in groin Eczema 06/14/2024 Overview (06/14/2024): childhood, and likely foot right Diabetes mellitus type 2, co ntrolled ([facility] V24, [facility] V28) 2020 Seasonal allergic rhinitis due to pollen 021 Allergic conjunctivitis, bilateral 07/29/2020 COVID-19 virus infection 04/21/2020 Intestinal malabsorption following gastrectomy 0 09/27/2018 Anxiety 06/13/2013 Vitamin D insufficiency 03/22/2013 Insomnia 02/28/2012 Depression 02/28/2012 Encounters Date Type Department Care Team Description 02/01/2025 12:30 PM EDT - 02/01/2025 7:01 PM EDT Emergency [facility] Emergency [address] [place] [phone] Darrell Jackson MD Inflammatory bowel disease (Primary Dx) Discharge Disposition: Home or Self Care 12/11/2024 6:15 PM EDT - 12/11/2024 8:39 PM EDT Emergency [facility] Emergency [address] [place] [phone] Sprain of right ankle, unspecified ligament, initial [...] APPENDECTOMY 2003 PROCEDURE: HISTORICAL APPENDECTOMY SECTION PROCEDURE: CA DELIVERY ONLY TONSILLECTOMY age 14 PROCEDURE: HISTORICAL TONSILLECTOMY APPENDECTOMY 2003 PROCEDURE: CA APPENDECTOMY TUBAL LIGATION 2004 PROCEDURE: HISTORICAL TUBAL [...] COMMENT: Mony BREAST BIOPSY 2018 Right PROCEDURE: CA BX BREAST W/DEVICE 1ST LESION ULTRASOUND GUID; COMMENT: right b9 BREAST REDUCTION 2001 Bilateral PROCEDURE: CA BREAST REDUCTION BREAST SURGERY 06/12/2014 Right PROCEDURE: CA UNLISTED PROCEDURE BREAST; COMMENT: fibroadenoma BREAST SURGERY 2019 Right PROCEDURE: CA UNLISTED PROCEDURE BREAST; COMMENT: right mass removed [...] Sexual Orientation Not on file Obstetrics History * This document contains information received from the source organization and may not represent a complete record from that organization. Para Term AB IAB SAB Ectopic Multiple Livin g Live Births 5 4 3 1 3 3 Date Outcome GA Total Labor Labor/2nd/3rd Weight Sex Type Anes PTL Wendy A1 A5 Name Clin Term 995 998 32w 0d 2155 g (76 oz) F CS-Un spec Livin g Marsis ol Delivery Location:[facility] 000 Term 40w 0d 3402 g (120 oz) M Vag-S pont Livin g Schuyler Delivery Location:[facility] 005 Term 40w 0d 4026 g (142 oz) F Vag-S pont Livin g Lissy Delivery Location:[facility] Filed Vital Signs Vital Sign Reading Time [...] Signed Date: 02/01/2025 16:56 ET Workstation ID: [id number] Transcribed By: Self Edit Transcribed Date: 02/01/2025 [...] Signed Date: 02/01/2025 16:56 ET Workstation ID: [id number] Transcribed By: Self Edit Transcribed Date: 02/01/2025 16:52 ET us Darrell Jackson MD IMG CT PROCEDURES Final [...] CBC auto differential (02/01/2025 12:44 PM EDT) [facility] WBC 9.2 4.8 - 10.8 K/mcL LAB HEMETOLOGY METHOD 02/01/2025 1:30 PM EDT [facility] RBC 4.80 3.80 - 4.80 M/mcL LAB HEMETOLOGY METHOD 02/01/2025 1:30 PM EDT [facility] Hemoglobin 13.0 11.5 - 16.0 g/dL LAB HEMETOLOGY METHOD 02/01/2025 1:30 PM EDT [facility] Hematocrit 40.9 35.0 - 47.0 % LAB HEMETOLOGY METHOD 02/01/2025 1:30 PM EDT [facility] MCV 86.1 79.0 - 98.0 FL LAB HEMETOLOGY METHOD 02/01/2025 1:30 PM EDT [facility] MCH 27.4 27.0 - 32.0 pcg LAB HEMETOLOGY METHOD 02/01/2025 1:30 PM EDT [facility] MCHC 31.8(L) 32.0 - 37.0 g/dL LAB HEMETOLOGY [facility] RDW 13.8 11.0 - 15.0 % LAB HEMETOLOGY METHOD 02/01/2025 1:30 PM EDT [facility] Platelets 418(H) 130 - 400 K/mcL LAB HEMETOLOGY METHOD 02/01/2025 1:30 PM EDT [facility] MPV 9.4 7.0 - 11.0 FL LAB HEMETOLOGY METHOD 02/01/2025 1:30 PM EDT [facility] NRBC 0.0 <1.0 % LAB HEMETOLOGY METHOD 02/01/2025 1:30 PM EDT [facility] NRBC Absolute 0.00 <0.10 K/mcL LAB HEMETOLOGY METHOD 02/01/2025 1:30 PM EDT [facility] Neutrophils Relative 74.8 % LAB HEMETOLOGY METHOD 02/01/2025 1:[facility] Lymphocytes Relative 16.1 % LAB HEMETOLOGY METHOD 02/01/2025 1:30 PM EDT [facility] Monocytes Relative 8.3 % LAB HEMETOLOGY METHOD 02/01/2025 1:30 PM EDT [facility] Eosinophils Relative 0.3 % LAB HEMETOLOGY METHOD 02/01/2025 1:[facility] Basophils Relative 0.2 % LAB HEMETOLOGY METHOD 02/01/2025 1:30 [facility] Immature Granulocytes Relative 0.3 % LAB HEMETOLOGY METHOD 02/01/2025 1:30 PM [facility] Neutrophils Absolute 6.85 1.50 - 7.00 K/mcL LAB HEMETOLOGY METHOD 02/01/2025 1:30 [facility] Lymphocytes Absolute 1.48 1.00 - 5.00 K/mcL LAB HEMETOLOGY METHOD 02/01/2025 1:30 [facility] Monocytes Absolute 0.76 0.20 - 1.00 K/mcL LAB HEMETOLOGY METHOD 02/01/2025 1:30 [facility] Eosinophils Absolute 0.03 0.00 - 0.50 K/mcL LAB HEMETOLOGY METHOD 02/01/2025 1:30 PM [facility] Basophils Absolute 0.02 0.00 - 0.20 K/mcL LAB HEMETOLOGY METHOD 02/01/2025 1:30 PM [facility] Immature Granulocytes Absolute 0.03 0.00 - 0.03 K/mcL LAB HEMETOLOGY METHOD 02/01/2025 1:30 PM EDT [facility] Blood Venous blood specimen / Unknown Venipuncture / Unknown 02/01/2025 12:44 PM EDT 02/01/2025 1:19 PM EDT Darrell Jackson MD LAB BLOOD ORDERABLES Final Resul t Performing Organization Address [facility]/ZIP Co de Phone Number [facility] [address] [place] [address], [place] [phone] * Lipase (02/01/2025 12:44 PM EDT) Lipase 35 13 - 75 unit/L LAB CHEMISTRY METHOD 02/01/2025 1:59 PM EDT [facility] Blood Venous blood specimen / Unknown Venipuncture / Unknown 02/01/2025 12:44 PM EDT 02/01/2025 1:19 PM EDT us Darrell Jackson MD LAB BLOOD ORDERABLES Final Resul t Performing Organization Address [facility]/RUST de Phone Number [facility] [address] [place] [address], [place] [phone] * Comprehensive metabolic panel (02/01/2025 12:44 PM EDT) Sodium 137 133 - 145 mmol/L LAB CHEMISTRY METHOD 02/01/2025 1:59 PM EDT [facility] Potassium 4.1 3.5 - 5.5 mmol/L LAB CHEMISTRY METHOD 02/01/2025 1:59 PM EDT [facility] Comment:Hemolysis present Chloride 104 96 - 110 mmol/L LAB CHEMISTRY METHOD 02/01/2025 1:59 PM EDT [facility] CO2 28 21 - 32 mmol/L LAB CHEMISTRY METHOD 02/01/2025 1:59 PM EDT [facility] Anion Gap 5 3 - 11 LAB CHEMISTRY METHOD 02/01/2025 1:59 PM [facility] Glucose 93 70 - 100 mg/dL LAB CHEMISTRY METHOD 02/01/2025 1:59 PM [facility] BUN 11 5 - 25 mg/dL LAB CHEMISTRY METHOD 02/01/2025 1:59 PM [facility] Creatinine 0.75 0.50 - 1.10 mg/dL LAB CHEMISTRY METHOD 02/01/2025 1:59 PM [facility] eGFR 99 >=60 mL/min/1. 73m2 LAB CHEMISTRY METHOD 02/01/2025 1:59 PM [facility] Comment:Calculation based on the Chronic Kidney Disease Epidemiology Collaboration (CKD-EPI) equation refit without adjustment for race. BUN/Creatinine Ratio 14.7 LAB CHEMISTRY METHOD 02/01/2025 1:59 PM [facility] Calcium 9.6 8.5 - 10.5 mg/dL LAB CHEMISTRY METHOD 02/01/2025 1:59 PM [facility] AST (SGOT) 16 10 - 42 unit/L LAB CHEMISTRY METHOD 02/01/2025 1:59 PM [facility] Comment:Hemolysis present ALT (SGPT) 23 10 - 60 unit/L LAB CHEMISTRY METHOD 02/01/2025 1:59 PM [facility] Alkaline Phosphatase 66 42 - 121 unit/L LAB CHEMISTRY METHOD 02/01/2025 1:59 PM [facility] Total Protein 7.2 6.0 - 8.0 g/dL LAB CHEMISTRY METHOD 02/01/2025 1:59 PM [facility] Albumin 3.6 3.2 - 5.0 g/dL LAB CHEMISTRY METHOD 02/01/2025 1:59 PM [facility] Total Bilirubin 0.2 0.0 - 1.4 mg/dL LAB CHEMISTRY METHOD 02/01/2025 1:59 PM [facility] ([facility]) [facility] Blood Venous blood specimen / Unknown Venipuncture / Unknown 02/01/2025 12:44 PM EDT 02/01/2025 1:19 PM EDT us Darrell Jackson MD LAB BLOOD ORDERABLES Final Resul t [facility] [address] [place] [address], * XR Foot 3+ Views Right (12/11/2024 [...] Signed Date: 12/11/2024 21:10 ET Workstation ID: [id number] Transcribed By: Self Edit Transcribed Date: 12/11/2024 [...] Signed Date: 12/11/2024 21:10 ET Workstation ID: [id number] Transcribed By: Self Edit Transcribed Date: 12/11/2024 [...] Signed Date: 12/11/2024 20:52 ET Workstation ID: [id number] Transcribed By: Self Edit Transcribed Date: 12/11/2024 [...] Signed Date: 12/11/2024 20:52 ET Workstation ID: [id number] Transcribed By: Self Edit Transcribed Date: 12/11/2024 [...] is recommended in 1 year. MAMMO LOCATION: [facility], [address] [place] [address], [phone], . -------- FINAL REPORT -------- Dictated By: Lizz Carlton Dictated Date: 11/19/2024 15:22 ET Assigned Physician: Lizz Carlton Reviewed and Electronically Signed By: Lizz Carlton Signed Date: 11/19/2024 15:50 ET Workstation ID: [id number] Transcribed By: Self Edit Transcribed Date: 11/19/2024 [...] is recommended in 1 year. MAMMO LOCATION: [facility], [address] [place] [address], [phone], . -------- FINAL REPORT -------- Dictated By: Lizz Carlton Dictated Date: 11/19/2024 15:22 ET Assigned Physician: Lizz Carlton Reviewed and Electronically Signed By: Lizz Carlton Signed Date: 11/19/2024 15:50 ET Workstation ID: [id number] Transcribed By: Self Edit Transcribed Date: 11/19/2024 15:22 ET us Mohini GANN IMG BI PROCEDURES Final Result * Hepatitis C antibody (10/09/2024 4:48 PM EDT) [facility] Hepatitis C Antibody Negative Negative LAB CHEMISTRY METHOD 10/09/2024 7:40 PM EDT [facility] Blood Venous blood specimen / Unknown Venipuncture / Unknown 10/09/2024 4:48 PM EDT 10/09/2024 4:48 PM EDT us Mohini Miramontes [facility] LAB BLOOD ORDERABLES Final Res ult Performing Organization Address [facility]/ZIP Co de Phone Number [facility] [address] [place] [address], [place] [phone] * HIV 1,2 antibody, p24 antigen with reflex to differentiation (10/09/2024 4:48 PM EDT) [facility] HIV Combo AB/AG Negative Negative LAB CHEMISTRY METHOD 10/09/2024 7:41 PM EDT [facility] Blood Venous blood specimen / Unknown Venipuncture / Unknown 10/09/2024 4:48 PM EDT 10/09/2024 4:48 PM EDT Narrative [facility] - 10/09/2024 7:41 PM EDT This assay is a 4th generation assay allowing for earlier detection of HIV infection by detecting the presence of the HIV-1 p24 antigen as well as the traditional antibodies to HIV type 1 (including group O) and type 2. Use of a 4th generation assay is the current CDC recommendation for HIV screening. us Mohini GANN LAB BLOOD ORDERABLES Final Res ult Performing Organization Address [facility]/ZIP Co de Phone Number [facility] [address] [place] [address], [place] [phone] * HPV with reflex genotype (10/09/2024 4:19 PM EDT) HPV Negative Negative LAB MICROBIOLOGY METHOD 10/12/2024 6:28 AM EDT [facility] Brushing/Spatula Cervix uteri structure / Unknown 10/09/2024 4:19 PM EDT 10/11/2024 5:54 AM EDT Mohini Miramontes CNM LAB MOLECULAR DIAGNOSTICS ADY NETTLES Final Result [facility] [address] [place] [address], * (ABNORMAL) Hemoglobin A1c (01/03/2018) Pathologist [facility] Hemoglobin A1C 6.8(A) <=6.5 % Blood Venous blood specimen / Unknown Historical Provider LAB BLOOD ORDERABLES Yashira l Result * Lipid panel (01/03/2018) Pathologist [facility] LDL/HDL Ratio 4 0 - 4 Triglycerides 106 0 - 150 mg/dL Cholesterol 162 0 - 200 mg/dL HDL 42 >=40 mg/dL LDL Cholesterol 99 0 - 100 mg/dL Blood Venous blood specimen / Unknown Historical Provider MD LAB BLOOD ORDERABLES Yashira l Result from Last 3 Months or Most Recently Relevant to Health Maintenance Insurance [facility] Care Teams Deli Department Manager Relationship Specialty Start Date End Date [facility]f [facility] [address] [place] [phone] PCP - General Internal Medicine 10/14/20
== END 2025-02-26 09:35 | disposition left against medical advice (07) ==
LOC: HO.HMCFM 09:21
PROVIDERS: PCP Nurse Practitioner Family; Visit Provider Nurse Practitioner Family
DX: R73.01 Impaired fasting glucose (principal); D75.839 Thrombocytosis, unspecified; R03.0 Elevated blood-pressure reading, without diagnosis of hypertension; Z13.9 Encounter for screening, unspecified

== ENCOUNTER → 2025-02-26 09:21 | Outpatient (BNVA) | payer OTHER, SELFPAY | PROVIDERS: PCP Nurse Practitioner Family; Visit Provider Nurse Practitioner Family | DX: R73.01 Impaired fasting glucose (principal); D75.839 Thrombocytosis, unspecified; R03.0 Elevated blood-pressure reading, without diagnosis of hypertension; Z87.891 Personal history of nicotine dependence | CPT/HCPCS: 83036; 99212 ==

== ENCOUNTER 2025-03-18 09:15 | Outpatient (AMB) | payer OTHER, SELFPAY ==
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
--- NOTE | 2025-03-18 09:20 | A.OFFPC_ITS ---
Vital Signs 03/18/25 09:24 03/18/25 09:48 Height 5 ft 3 in Weight 218 lb 6 oz BMI 38.7 BP 160/82 H 150/94 H Blood Pressure Location Rt brachial Rt brachial Position Sitting Sitting Respiration 16 Pulse 86 Pulse Source Pulse Oximeter Temp 99 F Temp Source Oral Pulse Oximetry (%) 100 Oxygen Delivery Method Room Air Intake Visit Reasons: [facility] ED FOLLOW UP Intake Note: patient here for ED follow up [employer] Required: No Is last menstrual period known: Yes Last menstrual period: 03/05/25 Post menopausal: No Patient : No Allergies Seasonal Allergies Allergy (Verified 03/18/25 09:44) COngested shellfish derived (shellfish) Allergy (Verified 03/18/25 09:44) Shortness of Breath Sour sop Allergy (Uncoded 03/18/25 09:44) Swelling Medication List - Last Reconciled 03/18/25 by Ken Ridley CNP No Known Home Meds Tobacco use date assessed: 03/18/25 Dental Screening Dental Screen Date: 03/18/25 Did you have a dental visit in the last 12 months?: No Did you have a dental problem in the last 6 months where you did not have access to dental care?: No Was dental information given to patient?: No HPI HPI Comments History of Present Illness Details 49-year-old female presents for ED disch arge follow-up. She was evaluated at [facility] ED on 02/01/2025 for abdominal pain, diarrhea, nausea, and vomiting. Per ED note that the patient sent to us from her portal, workup revealed inflammatory bowel disease. She was treated with pain meds and sent home on antibiotics. She was advised to follow-up with PCP as needed. ED discharge summary is not currently available. Patient notes that she has not had abdominal pain or GI symptoms since her last episode that led her to the ED. she offers no complaints and denies acute symptoms at this time. FORMERLY [facility], [facility] Medical History (Updated 03/19/25 @ 06:44 by Ken Ridley CNP) Inflammatory bowel diseases (IBD) Hydradenitis TMJ (dislocation of temporomandibular joint) Foot injury Eczema Depression Anxiety Surgical History (Updated 12/17/24 @ 09:00 by Becca Kahn MA) H/O gastric sleeve H/O: History of adenoidectomy History of tonsillectomy H/O tubal ligation History of cholecystectomy Hx of appendectomy History of bilateral breast reduction surgery Family History Maternal Grandmother High blood pressure High cholesterol Diabetes Cardiovascular disease Mother Diabetes Maternal Aunt Lung cancer Social History (Updated 02/11/25 @ 08:06 by Bella Fish MA) Housing: House Alcohol intake: current Comment: Social Patient Tobacco Use Status: Never used Tobacco e-Cigarette/Vaping Use: Never Used Second Hand Smoke Exposure: No service: No Current occupational status: unemployed Current occupational exposures/hazards: No Cognitive needs: No Hearing needs: No Vision needs: No Female Reproductive History Menstrual Date of last menstrual period: 03/05/25 Questionnaire Thrive Questionnaire Date Thrive assessed: 12/17/24 I am a: Patient What is your living situation today?: I choose not to answer this question Within the past 12 months, did the food you bought not last and you didn't have the money to get more?: I choose not to answer this question Within the past 12 months, did you worry whether your food would run out before you got money to buy more?: I choose not to answer this question Do you have trouble paying for medicines?: I choose not to answer this question Do you have trouble getting transportation to medical appointments?: I choose not to answer this question Do you have trouble paying your heating and electricity bill?: I choose not to answer this question Do you have trouble taking care of your child, family member or friend?: I c hoose not to answer this question Do you have trouble with day-to-day activities such as bathing, preparing meals, shopping, managing finances, etc.?: I choose not to answer this question Are you currently unemployed and looking for a job?: I choose not to answer this question Are you interested in more education?: I choose not to answer this question Please select the resources that you would like help with: None Currently or been in a relationship where the following occur: I choose not to answer THRIVE Score: 0 JG-7 AMB Questionnaire JG-7 Date JG - 7 assessed: 02/11/25 Source: Developed by Drs. Stef Garduno, Ivtet Domingo, Johnny Healy and colleagues, with an educational teresita from [employer]. Review of Systems Const Details: Const Denies chills, Denies fatigue, Denies fever(s), Denies headache(s) and Denies weakness ENT Denies dizziness and Denies headache(s) Card Denies chest pain, Denies lightheadedness, Denies dyspnea and Denies other (Palpitations) Resp Denies cough, Denies dyspnea, Denies wheezing and Denies other ( shortness of breath) GI Denies abdominal pain, Denies melena, Denies hematochezia, Denies change in bowel habits, Denies dyspepsia and Denies nausea Denies hematuria and Denies dysuria Musc Denies abnormal gait, Denies myalgias, Denies arthralgias, Denies numbness and Denies tingling Skin/Breast Denies rash, Denies unusual bruising and Denies wounds Neuro Denies abnormal gait, Denies dizziness, Denies headache(s), Denies memory loss, Denies numbness, Denies Sensory deficit (Neuro), Denies tingling and Denies weakness Psych Denies anxiety, Denies depression, Denies memory loss Endo Denies cold intolerance, Denies fatigue, Denies heat intolerance, Denies polydipsia and Denies polyuria Aller/Immun Denies wheezing Physical exam (Primary Care) Vital Signs: Last Vital Signs Temp 99 F 03/18/25 09:24 Pulse 86 03/18/25 09:24 Resp 16 03/18/25 09:24 BP 150/94 H 03/18/25 09:48 Pulse Ox 100 03/18/25 09:24 Oxygen Delivery Method Room Air 03/18/25 09:24 BMI result Body Mass Index 38.7 Tobacco/Smoking Status: Tobacco use Status Tobacco use date assessed 03/18/25 03/18/25 09:29 Patient Tobacco Use Status Never used Tobacco 03/18/25 09:22 e-Cigarette/Vaping Use Never Used 03/18/25 09:22 Thrive Assessment: Date of Thrive Assessment Date Thrive assessed 12/17/24 03/18/25 09:22 Currently or been in a relationship where the following occur: I choose not to answer Const Other: General: no acute distress and well developed Nutritional Appearance: well nourished Orientation/consciousness: patient oriented x3 HENMT Head: Yes normocephalic and Yes atraumatic Eyes General: appearance normal, both eyes and all related structures Pupils: Equal, round and reactive pupils present EOM: EOMs intact bilaterally Resp Effort & Inspection: normal respiratory effort Auscultation: clear to auscultation bilaterally Cardio Rate: regular rate Rhythm: regular rhythm Heart sounds: S1 normal heart sound present, S2 normal heart sound present, no gallops, no murmurs and no rubs GI Palpation (GI): No Abdominal aortic bruit present, Soft to palpation, nontender, No hepatosplenomegaly present and No Rebound tenderness present Auscultation: normal bowel sounds General: Yes no CVA tenderness Back/Spine/Pelvis Back: no CVA tenderness Cervical Spine: cervical ROM normal and No Cervical spine tenderness Thoracic/Lumbar Spine: thoraco-lumbar ROM normal, No pain with thoraco-lumbar ROM, No thoracic spinal tenderness and No lumbar spinal tenderness Extrem General: Yes normal to inspection, No edema and No calf tenderness Skin General: warm and dry. Normal skin color. Normal skin turgor Neuro General: patient oriented x3, gait normal and no focal neuro deficit Cranial nerves: Yes Equal, round and reactive pupils present Cognition (Neuro): normal cognition Gait exam (Neuro): Normal gait present Sensory Exam: No Sensory deficit (Neuro) Psych Appearance: grossly normal Affect: normal affect Attitude: cooperative Thought process: Normal thought process present Coding Level of Care Code Est Pt Level 4 (91020) Diagnoses Inflammatory bowel diseases (IBD) K52.9 Hospital discharge follow-up Z09 Elevated blood pressure reading without diagnosis of hypertension R03.0 Assessment & Plan Assessment & Plan (1) Inflammatory bowel diseases (IBD): Code(s): K52.9 - Noninfective gastroenteritis and colitis, unspecified Category: Medical Plan: Patient notes that she has not had abdominal pain or GI symptoms since her last episode that led her to the ED. she offers no complaints and denies acute symptoms at this time. Advised to follow-up as needed. Verbalized understanding and agreed with plan. (2) Hospital discharge follow-up: Code(s): Z09 - Encounter for follow-up examination after completed treatment for conditions other than malignant neoplasm Category: Medical Plan: Plan as above. (3) Elevated blood pressure reading without diagnosis of hypertension: Code(s): R03.0 - Elevated blood-pressure reading, without diagnosis of hypertension Category: Medical Plan: Resting blood pressure is 150/94, above goal of less than 140/90. Denies family history of hypertension. Routine exercise and low-sodium diet encouraged. Advised to avoid processed foods. Blood pressure monitor ordered. Advised to monitor BP 2-3 times weekly, record readings, and bring to next appointment. Follow-up in 1 month or sooner with symptoms or concerns. Verbalized understanding and agreed with the plan. Medications: New miscellaneous medical supply 1 large BP monitor/cuff 1 ea 0RF R03.0 - Elevated blood-pressure reading, without diagnosis of hypertension
[2025-03-18 09:24] VITALS: BP 160/82; PULSE 86; RESP 16; TEMP 37.2; O2SAT 100; BMI 38.7
[2025-03-18 09:48] VITALS: BP 150/94
--- OUTSIDE RECORDS SUMMARY | 2025-03-18 10:54 | XMS_ITS | Clinical Summary ---
Author Organization [facility] [address] [place] [address] [place] [id number] Phone Care Team Providers Care [employer] Portal Consultant Name Role Phone Stef Garcia DO Primary [...] hours for 7 days. 14 tablet 5 03/22/20 25 Active Active Problems Problem Noted Date Diagnosed Date Severe obesity (BMI 35.0-39. 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 Diabetes mellitus type 2, co ntrolled ([facility] V24, [facility] V28) 2020 Seasonal allergic rhinitis due to pollen 021 Allergic conjunctivitis, bilateral 07/29/2020 COVID-19 virus infection 04/21/2020 Intestinal malabsorption following gastrectomy 0 09/27/2018 Anxiety 06/13/2013 Vitamin D insufficiency 03/22/2013 Insomnia 02/28/2012 Depression 02/28/2012 Encounters Date Type Department Care Team Description 03/15/2025 6:22 PM EDT - 03/15/2025 6:59 PM EDT Emergency [facility] Emergency [address] [place] [phone] Steve Whyte MD Paronychia of finger of left hand (Primary Dx) Discharge Disposition: Home or Self Care 02/01/2025 12:30 PM EDT - 02/01/2025 7:01 PM EDT Emergency [facility] Emergency [address] [place] [phone] Darrell Jackson MD Inflammatory bowel disease (Primary Dx) Discharge Disposition: Home or Self Care from [...] Surgical History Surgery Date Site/Laterality Comments APPENDECTOMY 2004 PROCEDURE: HISTORICAL APPENDECTOMY SECTION PROCEDURE: [place] DELIVERY [...] CS-Un spec Livin g Marsis ol Delivery Location:[facility] 000 Term 40w 0d 3402 g (120 oz) M Vag-S pont Livin g Schuyler Delivery Location:[facility] 005 Term 40w 0d 4026 g (142 oz) F Vag-S pont Livin g Lissy Delivery Location:[facility] Last Filed Vital Signs Vital Sign [...] Mass Index 38.1 03/15/2025 6:07 PM EDT Plan of Treatment Health Maintenance [...] 06/12/2022 Cholesterol Screening (Lipid Panel) 01/03/2023 01/03/2018 Depression Screening 07/04/2024 COVID-19 Vaccine ( season) 2025 06/20/2021, 10/02/2020, 09/04/2020 Influenza Vaccine (#1) 2025 , 03/22/2013, 04/03/2010, [...] Date/Time Associated Diagnosis Comments HC I&D/EXCISION/BIOPSY BONE MARROW/TISSUE/TUMOR/HTO MA/ABSC/CYST LEVEL 1 Routine 03/15/2025 6:53 PM EDT [place] DRAINAGE ABSCESS FINGER SIMPLE Routine 03/15/2025 6:[address] ABDOMEN PELVIS W CONTRAST STAT 02/01/2025 4:35 PM EDT POC , URINE DIAGNOSTIC STAT 02/01/2025 4:05 PM EDT CBC WITH AUTO DIFFERENTIAL STAT 02/01/2025 12:44 PM EDT LIPASE STAT 02/01/2025 12:44 PM EDT COMPREHENSIVE METABOLIC PANEL STAT 02/01/2025 12:44 PM EDT CBC AND DIFFERENTIAL STAT 02/01/2025 12:44 PM EDT MG MAMMO DIGITAL DIAGNOSTIC W [...] Recently Relevant to Health Maintenance Results * [place] DRAINAGE ABSCESS FINGER SIMPLE, HC I&D/EXCISION/BIOPSY BONE [...] MD IN CLINIC/BEDSIDE ORDERABLE S Final Result * CT Abdomen Pelvis w Contrast (02/01/2025 [...] Signed Date: 02/01/2025 16:56 ET Workstation ID: [id number] Transcribed By: Self Edit Transcribed Date: 02/01/2025 [...] Signed Date: 02/01/2025 16:56 ET Workstation ID: [id number] Transcribed By: Self Edit Transcribed Date: 02/01/2025 16:52 ET Darrell Jackson MD IMG CT PROCEDURES Final Result * POC , urine manually resulted (02/01/2025 4:05 PM EDT) Pathologist [facility] HCG, Ur POC Negative Negative POC hCG Int QC Pass? Yes Yes Urine Urine specimen obtained by clean catch procedure / Unknown 02/01/2025 4:05 PM EDT Darrell Jackson MD POINT OF CARE TEST ENTER/EDIT OR DERABLES Edited Result - Final * (ABNORMAL) CBC auto differential (02/01/2025 12:44 PM EDT) [facility] WBC 9.2 4.8 - 10.8 K/mcL LAB HEMETOLOGY METHOD 02/01/2025 1:30 PM EDT [facility] RBC 4.80 3.80 - 4.80 M/mcL LAB HEMETOLOGY METHOD 02/01/2025 1:30 PM EDT [facility] Hemoglobin 13.0 11.5 - 16.0 g/dL LAB HEMETOLOGY METHOD 02/01/2025 1:30 PM EDT [facility] Hematocrit 40.9 35.0 - 47.0 % LAB HEMETOLOGY METHOD 02/01/2025 1:30 PM EDT [facility] MCV 86.1 79.0 - 98.0 FL LAB HEMETOLOGY METHOD 02/01/2025 1:30 PM EDT [facility] MCH 27.4 27.0 - 32.0 pcg LAB HEMETOLOGY METHOD 02/01/2025 1:30 PM EDT [facility] MCHC 31.8(L) 32.0 - 37.0 g/dL LAB HEMETOLOGY METHOD 02/01/2025 1:30 PM EDT [facility] RDW 13.8 11.0 - 15.0 % LAB HEMETOLOGY METHOD 02/01/2025 1:30 PM EDT [facility] Platelets 418(H) 130 - 400 K/mcL LAB HEMETOLOGY METHOD 02/01/2025 1:30 PM EDT [facility] MPV 9.4 7.0 - 11.0 FL LAB HEMETOLOGY METHOD [facility] NRBC 0.0 <1.0 % LAB HEMETOLOGY METHOD 02/01/2025 1:30 PM EDT [facility] NRBC Absolute 0.00 <0.10 K/mcL LAB HEMETOLOGY METHOD 02/01[facility]2025 [facility] Neutrophils Relative 74.8 % LAB HEMETOLOGY METHOD 02/01[facility]2025 [facility] Lymphocytes Relative 16.1 % LAB HEMETOLOGY METHOD 02/01[facility]2025 [facility] Monocytes Relative 8.3 % LAB HEMETOLOGY METHOD 02/01/2025 1:30 PM EDT [facility] Eosinophils Relative 0.3 % LAB HEMETOLOGY METHOD 02/01/2025 1:[facility] Basophils Relative 0.2 % LAB HEMETOLOGY METHOD 02/01/2025 1:[facility] Immature Granulocytes Relative 0.3 % LAB HEMETOLOGY METHOD 02/01/2025 1:[facility] Neutrophils Absolute 6.85 1.50 - 7.00 K/mcL LAB HEMETOLOGY METHOD 02/01/2025 1:30 PM EDT [facility] Lymphocytes Absolute 1.48 1.00 - 5.00 K/mcL LAB HEMETOLOGY METHOD 02/01/2025 1:30 PM EDT [facility] Monocytes Absolute 0.76 0.20 - 1.00 K/mcL LAB HEMETOLOGY METHOD 02/01/2025 1:30 PM EDT [facility] Eosinophils Absolute 0.03 0.00 - 0.50 K/mcL LAB HEMETOLOGY METHOD 02/01/2025 1:30 PM EDT [facility] Basophils Absolute 0.02 0.00 - 0.20 K/mcL LAB HEMETOLOGY METHOD 02/01/2025 1:30 PM EDT [facility] Immature Granulocytes Absolute 0.03 0.00 - 0.03 K/mcL LAB HEMETOLOGY METHOD 02/01/2025 1:30 PM EDT [facility] Blood Venous blood specimen / Unknown Venipuncture / Unknown 02/01/2025 12:44 PM EDT 02/01/2025 1:19 PM EDT Darrell Jackson MD LAB BLOOD ORDERABLES Final Resul t [facility] [address] [place] [address], * Lipase (02/01/2025 12:44 PM EDT) Lipase 35 13 - 75 unit/L LAB CHEMISTRY METHOD 02/01/2025 1:59 PM EDT [facility] Blood Venous blood specimen / Unknown Venipuncture / Unknown 02/01/2025 12:44 PM EDT 02/01/2025 1:19 PM EDT us Darrell Jackson MD LAB BLOOD ORDERABLES Final Resul t [facility] [address] [place] [address], * Comprehensive metabolic panel (02/01/2025 12:44 PM EDT) Sodium 137 133 - 145 mmol/L LAB CHEMISTRY METHOD 02/[facility]2025 1[facility] Potassium 4.1 3.5 - 5.5 mmol/L LAB CHEMISTRY METHOD 02/01/2025 1:59 PM [facility] Comment:Hemolysis present Chloride 104 96 - 110 mmol/L LAB CHEMISTRY METHOD 02/01/2025 1:59 PM [facility] CO2 28 21 - 32 mmol/L LAB CHEMISTRY METHOD 02/01/2025 1:59 PM [facility] Anion Gap 5 3 - 11 LAB CHEMISTRY METHOD 02/01/2025 1:59 PM [facility] Glucose 93 70 - 100 mg/dL LAB CHEMISTRY METHOD 02/01/2025 1:59 PM [facility] BUN 11 5 - 25 mg/dL LAB CHEMISTRY METHOD 02/01/2025 1:59 PM [facility] Creatinine 0.75 0.50 - 1.10 mg/dL LAB CHEMISTRY METHOD 02/01/2025 1:59 PM [facility] eGFR 99 >=60 mL/min/1. 73m2 LAB CHEMISTRY METHOD 02/01/2025 1:59 PM [facility] Comment:Calculation based on the Chronic Kidney Disease Epidemiology Collaboration (CKD-EPI) equation refit without adjustment for race. BUN/Creatinine Ratio 14.7 LAB CHEMISTRY METHOD 02/01/2025 1:59 PM [facility] Calcium 9.6 8.5 - 10.5 mg/dL LAB CHEMISTRY METHOD 02/01/2025 1:59 PM EDT [facility] AST (SGOT) 16 10 - 42 unit/L LAB CHEMISTRY METHOD 02/01/2025 1:59 PM EDT [facility] Comment:Hemolysis present ALT (SGPT) 23 10 - 60 unit/L LAB CHEMISTRY METHOD 02/01/2025 1:59 PM EDT [facility] Alkaline Phosphatase 66 42 - 121 unit/L LAB CHEMISTRY METHOD 02/01/2025 1:59 PM EDT [facility] Total Protein 7.2 6.0 - 8.0 g/dL LAB CHEMISTRY METHOD 02/01/2025 1:59 PM EDT [facility] Albumin 3.6 3.2 - 5.0 g/dL LAB CHEMISTRY METHOD 02/01/2025 1:59 PM EDT [facility] Total Bilirubin 0.2 0.0 - 1.4 mg/dL LAB CHEMISTRY METHOD 02/01/2025 1:59 PM EDT [facility] Blood Venous blood specimen / Unknown Venipuncture / Unknown 02/01/2025 12:44 PM EDT 02/01/2025 1:19 PM EDT us Darrell Jackson MD LAB BLOOD ORDERABLES Final Resul t [facility] [address] [place] [address], * MG Mammo Digital Diagnostic w Sundar [...] is recommended in 1 year. MAMMO LOCATION: [facility], [address] [place] [address], [id number], . -------- FINAL REPORT -------- Dictated By: Lizz Carlton Dictated Date: 11/19/2024 15:22 ET Assigned Physician: Lizz Carlton Reviewed and Electronically Signed By: Lizz Carlton Signed Date: 11/19/2024 15:50 ET Workstation ID: [id number] Transcribed By: Self Edit Transcribed Date: 11/19/2024 [...] is recommended in 1 year. MAMMO LOCATION: [facility], [address] [place] [address], [id number], . -------- FINAL REPORT -------- Dictated By: Lizz Carlton Dictated Date: 11/19/2024 15:22 ET Assigned Physician: Lizz Carlton Reviewed and Electronically Signed By: Lizz Carlton Signed Date: 11/19/2024 15:50 ET Workstation ID: [id number] Transcribed By: Self Edit Transcribed Date: 11/19/2024 15:22 ET Mohini Miramontes CNM IMG BI PROCEDURES Final Result * Hepatitis C antibody (10/09/2024 4:48 PM EDT) Hepatitis C Antibody Negative Negative LAB CHEMISTRY METHOD 10/09/2024 7:40 PM EDT [facility] Blood Venous blood specimen / Unknown Venipuncture / Unknown 10/09/2024 4:48 PM EDT 10/09/2024 4:48 PM EDT Mohini Miramontes CNM LAB BLOOD ORDERABLES Final Res ult [facility] [address] [place] [address], [place] [phone] * HIV 1,2 antibody, p24 antigen with reflex to differentiation (10/09/2024 4:48 PM EDT) [facility] HIV Combo AB/AG Negative Negative LAB CHEMISTRY METHOD 10/09/2024 7:41 PM EDT [facility] Blood Venous blood specimen / Unknown Venipuncture / Unknown 10/09/2024 4:48 PM EDT 10/09/2024 4:48 PM EDT Narrative [facility] - 10/09/2024 7:41 PM [...] recommendation for HIV screening. us Mohini Miramontes CNM LAB BLOOD ORDERABLES Final Res ult [facility] [address] [place] [address], [place] [phone] * HPV with reflex genotype (10/09/2024 4:19 PM EDT) [facility] HPV Negative Negative LAB MICROBIOLOGY METHOD 10/12/2024 6:28 AM EDT [facility] Brushing/Spatula Cervix uteri structure / Unknown 10/09/2024 4:19 PM EDT 10/11/2024 5:54 AM EDT us Mohini GANN LAB MOLECULAR DIAGNOSTICS ORDE RABLES Final Result [facility] [address] [place] [address], [place] [phone] * (ABNORMAL) Hemoglobin A1c (01/03/2018) Hemoglobin A1C 6.8(A) <=6.5 % Blood Venous [...] Most Recently Relevant to Health Maintenance Insurance [facility] [email or web address] Care Teams [employer] Portal Consultant Relationship Specialty Start Date End Date Stef Garcia DO [facility] [address] [place] [id number] PCP - General Internal Medicine 10/14/20
== END 2025-03-18 09:51 | disposition home or self-care (01) ==
LOC: HO.HMCFM 09:16
PROVIDERS: PCP Nurse Practitioner Family; Visit Provider Nurse Practitioner Family
DX: K52.9 Noninfective gastroenteritis and colitis, unspecified (principal); Z09 Encounter for follow-up examination after completed treatment for conditions other than malignant neoplasm; R03.0 Elevated blood-pressure reading, without diagnosis of hypertension

== ENCOUNTER → 2025-03-18 09:15 | Outpatient (BNVA) | payer OTHER, SELFPAY | PROVIDERS: PCP Nurse Practitioner Family; Visit Provider Nurse Practitioner Family | DX: R03.0 Elevated blood-pressure reading, without diagnosis of hypertension (principal); R10.9 Unspecified abdominal pain; K52.9 Noninfective gastroenteritis and colitis, unspecified | CPT/HCPCS: 99212 ==